=== PATIENT | female | born 1930 | race Caucasian/White ===

== ENCOUNTER 2017-12-19 05:17 | Observation (INO) | payer OTHER ==
[2017-12-19 06:37] LABS: Absolute Lymphocytes (CBC) 1.7 K/uL (0.7-4.9); Basophils % 0.9 % (0-1.3); Eosinophils % 0.3 % (0-4.4); Hematocrit 37.6 % (36.0-45.0); Lymphocytes % 14.2 % (15.3-44.8); MCH 28.8 pg (27.0-35.0); MCV 85.9 fL (80-100); MPV 8.8 fL (7.6-11.3); Monocytes % 8.4 % (3.3-12.3); RBC Red Blood Cell Count 4.38 M/uL (3.86-4.86)
[2017-12-19] MEDS ORDERED: NA CHLORIDE 0.9% 1,000 ML ONE (06:47)
[2017-12-19] MEDS ORDERED: ONDANSETRON 4 MG/2 ML VIAL ONE (06:47)
[2017-12-19 07:08] LABS: Urine Blood NEGATIVE (NEG); Urine Glucose NEGATIVE (NEG); Urine Protein TRACE (NEG)
[2017-12-19 07:09] LABS: Urine Bacteria <20 /HPF (<20); Urine Culture Reflex Order REFLEXED; Urine RBC <5 /HPF (NONE SEEN)
[2017-12-19 07:34] LABS: Albumin 3.3 g/dL (3.4-5.0); Bilirubin Direct 0.1 mg/dL (0-0.2); Bilirubin Total 0.8 mg/dL (0.2-1.0); Potassium 3.7 mmol/L (3.5-5.1); Protein, Total 7.5 g/dL (6.4-8.2)
--- NOTE | 2017-12-19 08:26 | RAD REPORT ---
EXAM DESCRIPTION: CT - Abdomen Pelvis W Contrast - 12/19/2017 8:07 am CLINICAL HISTORY: Abdominal pain COMPARISON: September 22, 2007 TECHNIQUE: Biphasic, helical CT imaging of the abdomen and pelvis was performed following 100 ml non -ionic IV contrast. No oral contrast was given. All CT scans are performed using dose optimization technique as appropriate and may include automated exposure control or mA/KV adjustment according to patient size. FINDINGS: Small bilateral pleural effusions are present right greater than left. These are new from the Sep 22 2007 study. Minimal pericardial effusion. The liver, spleen, and pancreas show no suspicious findings. Cholecystectomy clips are present. Dilat ion of the biliary tree is similar to 2008 and believed to be normal variant reservoir effect that ca n occur after a cholecystectomy. Small punctate cystic areas in the head of the pancreas may be part of the pancreatic duct system. There is fatty infiltration or volume loss of pancreatic parenchyma. F indings are not felt to be substantially different from 2008. Symmetric renal function is seen with no hydronephrosis or suspicious renal mass. No pyelonephritis o r acute renal parenchymal process. Contrast within the calices on arterial phase imaging is due to jennifer luz's limited IV access and the restart of the examination at a lower injection dose. No dilated bowel loops or bowel wall thickening. Patient has extensive left-sided diverticulosis with out diverticulitis. No gross evidence for a colon mass. Approximately 3.5 x 1.5 centimeter fatty mass in the colon at the hepatic flexure is present but not regarded as significant. Colon assessment is limited in this setting. No free air, pneumatosis or acute inflammatory stranding. Trace amount of fl uid in the dependent portion of the pelvis. No hernia, mass or bulky lymphadenopathy. The urinary bl adder is without significant finding. No adrenal abnormality. Uterus is absent. Ovaries are absent or atrophic. Old right ischium fracture is present. Patient has disc and bone degenerative change. Multilevel vert ebroplasty changes are noted. No active bone process suspected. IMPRESSION: No obstruction, free air or surgically emergent finding. Prominent left-sided diverticulosis without diverticulitis. No acute GI process seen. Nonacute findings detailed above are similar to the 2007 study.
--- NOTE | 2017-12-19 08:49 | ER ---
Nurse's Notes [facility] Name: Jenn Robbins Age: 87 yrs Sex: Female : 1930 Arrival Date: 12/19/2017 Time: 05:21 Bed 20 Private MD: Carmine Webber Diagnosis: Dehydration;Pleural effusion, not elsewhere classified;Weakness;Diarrhea, unspecified Presentation: 12/19 05:22 Presenting complaint: EMS states: Abdominal pain since the day before. Patient positive ao for nausea but denies vomiting. Patient BP was elevated and patient states that was unable to take her BP medications since yesterday. Transition of care: patient was not received from another setting of care. Onset of symptoms was December 18, 2017 at 06:00. Risk Assessment: Do you want to hurt yourself or someone else? Patient reports no desire to harm self or others. Initial Sepsis Screen: Does the patient meet any 2 criteria? No. Patient's initial sepsis screen is negative. Does the patient have a suspected source of infection? No. Patient's initial sepsis screen is negative. Care prior to arrival: None. 05:22 Method Of Arrival: EMS: [facility] ao 05:22 Acuity: MAURA 3 ao Historical: - Allergies: 05:30 Adhesives; ao 05:30 Ampicillin; ao 05:30 Nitrofurantoin; ao 05:30 Sulfa (Sulfonamide Antibiotics); ao - Home Meds: 05:30 Coreg 25 mg Oral tab 1 tab 2 times per day [Active]; Breo Ellipta inhalation [Active]; ao pantoprazole 40 mg Oral TbEC 1 tab once daily [Active]; multivitamin Oral cap daily [Active]; Tylenol PM Extra Strength 25-500 mg Oral tab once daily [Active]; hydroxyzine HCl 25 mg Oral tab [Active]; gabapentin 100 mg Oral cap twice a day [Active]; spironolactone 25 mg Oral tab 1 tab once daily [Active]; furosemide 20 mg Oral tab 1 tab once daily [Active]; - PMHx: 05:30 Arthritis; bells palsy; CHF; COPD; Diverticulitis; Hypertension; Osteoporosis; ao - PSHx: 05:30 Cholecystectomy; Appendectomy; stapedectomy; Hysterectomy; Tonsillectomy; ao - Immunization history:: Adult Immunizations up to date. - Social history:: Smoking status: Patient/guardian denies using tobacco, Patient uses alcohol, occasionally. Patient/guardian denies using street drugs, IV drugs. - Ebola Screening: : Patient negative for fever greater than or equal to 101.5 degrees Fahrenheit, and additional compatible Ebola Virus Disease symptoms Patient denies exposure to infectious person Patient denies travel to an Ebola-affected area in the 21 days before illness onset. Screenin:31 Abuse screen: Denies threats or abuse. Denies injuries from another. Nutritional ao screening: No deficits noted. Tuberculosis screening: No symptoms or risk factors identified. Fall Risk None identified. Assessment: 05:30 General: Appears in no apparent distress. comfortable, Behavior is calm, cooperative, ao appropriate for age. Pain: Complains of pain in abdomen. Neuro: Level of Consciousness is awake, alert, obeys commands, Oriented to person, place, time, situation, Appropriate for age Moves all extremities. Weakness Speech is normal, Facial symmetry appears normal, Pupils are PERRLA. Cardiovascular: Capillary refill < 3 seconds Patient's skin is warm and dry. Respiratory: Airway is patent Respiratory effort is even, unlabored, Respiratory pattern is regular, symmetrical. GI: Abdomen is non-distended, Bowel sounds present X 4 quads. Abd is soft and non tender X 4 quads. : No signs and/or symptoms were reported regarding the genitourinary system. EENT: No signs and/or symptoms were reported regarding the EENT system. Derm: Skin is intact, Skin is dry, Skin is pink, warm \T\ dry. normal, Skin temperature is warm. Musculoskeletal: Circulation, motion, and sensation intact. Range of motion:. 05:33 Reassessment: Dr Cosme at bedside. Dr Cosme was notified of patient BP's elevated and ao no order where received. 06:50 Reassessment: Patient appears in no apparent distress at this time. Patient and/or ao family updated on plan of care and expected duration. Pain level reassessed. Patient is alert, oriented x 3, equal unlabored respirations, skin warm/dry/pink. 07:17 General: Appears in no apparent distress. comfortable, Behavior is calm, cooperative. em Pain: Complains of pain in left lower quadrant and right lower quadrant. Neuro: Level of Consciousness is awake, alert, obeys commands, Oriented to person, place, time, situation, Speech is normal, Facial symmetry appears normal. Cardiovascular: Capillary refill < 3 seconds Patient's skin is warm and dry. Cardiovascular: Edema is 2+ to left ankle, left foot, right ankle and right foot. Respiratory: Airway is patent Respiratory effort is even, unlabored, Respiratory pattern is regular, symmetrical. GI: Abdomen is round non-distended, Bowel sounds present X 4 quads. Abd is soft X 4 quads Abdomen is tender to palpation in right lower quadrant and left lower quadrant. : No signs and/or symptoms were reported regarding the genitourinary system. EENT: No signs and/or symptoms were reported regarding the EENT system. Derm: Skin is intact, Skin is pink, warm \T\ dry. Musculoskeletal: Range of motion: intact in all extremities. 07:20 Reassessment: I agree with previous assessment. hb 08:15 Reassessment: Patient appears in no apparent distress at this time. Patient and/or em family updated on plan of care and expected duration. Pain level reassessed. Patient is alert, oriented x 3, equal unlabored respirations, skin warm/dry/pink. Patient denies pain at this time. Patient states symptoms have improved. 09:00 Reassessment: pt wheeled to restroom, became SOB, RR 28, SPO2 83% RA, assisted back em into bed, placed 2L via NC, SPO2 % 98% on 2L, pt appears in no apparent distress after intervention, Dr. Brown notified, will continue to monitor. Vital Signs: 05:23 BP 212 / 74; Pulse 79; Resp 14; Temp 98.1(O); Pulse Ox 94% on R/A; Weight 68.49 kg (R); ao Height 4 ft. 11 in. (149.86 cm) (R); Pain 5/10; 06:50 BP 158 / 67; Pulse 73; Resp 16; Pulse Ox 93% ; Pain 0/10; ao 07:19 BP 163 / 53; Pulse 76; Resp 18; Pulse Ox 95% on R/A; Pain 0/10; em 08:15 BP 193 / 59; Pulse 80; Resp 16; Pulse Ox 95% on R/A; Pain 0/10; em 08:55 Pulse 87; Resp 28; Pulse Ox 83% on R/A; em 08:59 BP 155 / 56; Pulse 85; Resp 22; Pulse Ox 100% on 2 lpm NC; em 10:25 BP 154 / 48; Pulse 73; Resp 20; Temp 98.6(O); Pulse Ox 100% on 2 lpm NC; Pain 0/10; em 05:23 Body Mass Index 30.50 (68.49 kg, 149.86 cm) ao 08:55 after being assisted to restroom with wheelchair em ED Course: 05:21 Patient arrived in ED. ao 05:21 Carmine Webber MD is Private Physician. ao 05:23 Triage completed. ao 05:25 Arm band placed on right wrist. Patient placed in an exam room, on a stretcher, on ao pulse oximetry, Patient notified of wait time. 05:32 Patient has correct armband on for positive identification. threat monitoring analyst on. Pulse ao ox on. NIBP on. 05:33 Jose Martin Mancuso RN is Primary Nurse. ao 05:37 Jason Cosme MD is Attending Physician. gs 06:30 Missed attempt(s): 20 gauge in left antecubital area. ao 06:45 Inserted saline lock: 22 gauge in right antecubital area, using aseptic technique. ao ,using aseptic technique. Avoided using tourniquet. ultrasound guided technique Blood collected. 07:02 Report given to CRUZ Armendariz. ao 07:15 Marcello Larkin LVN is Primary Nurse. em 07:56 CT completed. Patient tolerated procedure well. Patient moved back from CT. bq 07:57 Attending Physician role handed off by Jason Cosme MD rn 07:57 Kirk Brown MD is Attending Physician. rn 08:07 CT Abd/Pelvis - W/Contrast In Process Unspecified. EDMS 08:48 Luis Dee MD is Hospitalizing Provider. rn 10:25 No provider procedures requiring assistance completed. Patient admitted, IV remains in em place. Administered Medications: 06:48 Drug: Zofran 4 mg Route: IVP; Site: right antecubital; ao 07:15 Follow up: Response: No adverse reaction; Nausea is decreased em 06:48 Drug: NS 0.9% 1000 ml Route: IV; Rate: 125 ml/hr; Site: right antecubital; ao 08:00 Follow up: IV Status: Order to discontinue infusion; IV Intake: 200ml em Intake: 08:00 IV: 200ml; Total: 200ml. em Outcome: 08:48 Decision to Hospitalize by Provider. rn 11:09 Admitted to Med/surg accompanied by tech, family with patient, via wheelchair, room em 406, with oxygen, with chart, Report called to NED Green 11:09 Condition: good 11:09 Instructed on the need for admit, Demonstrated understanding of instructions. 11:10 Patient left the ED. em Signatures: Dispatcher [employer] EDAnali Layton Edgar, REPRODUCTION PRODUCTION MANAGER REPRODUCTION PRODUCTION MANAGER em Kirk Brown MD MD rn Ortiz, Alex, RN RN ao Baxter, Heather, RN RN hb Starr, MD ALFREDO Gomez gs Corrections: (The following items were deleted from the chart) 05:25 05:22 Presenting complaint: EMS states: Abdominal pain since the day before. Patient ao positive for nausea but denies vomiting. ao 05:36 05:33 Reassessment: Dr Cosme at bedside. Dr Cosme was addressed of Patient BP. No order ao received ao
--- NOTE | 2017-12-19 08:49 | EDPHYS ---
Physician Documentation [facility] Name: Jenn Robbins Age: 87 yrs Sex: Female : 1930 Arrival Date: 12/19/2017 Time: 05:21 Bed 20 Private MD: Carmine Webber ED Physician Kirk Brown HPI: 12/19 05:56 This 87 yrs old Female presents to ER via EMS with complaints of Abdominal gs Pain. 05:56 The patient presents with abdominal pain in the lower abdomen. Onset: The gs symptoms/episode began/occurred acutely, 2 day(s) ago. The symptoms do not radiate. Associated signs and symptoms: Pertinent positives: nausea, Pertinent negatives: fever, vomiting. The symptoms are described as sharp. Modifying factors: The symptoms are alleviated by nothing, the symptoms are aggravated by nothing. Severity of pain: At its worst the pain was moderate in the emergency department the pain is unchanged. The patient has experienced similar episodes in the past, a few times. The patient has not recently seen a physician. Historical: - Allergies: 05:30 Adhesives; ao 05:30 Ampicillin; ao 05:30 Nitrofurantoin; ao 05:30 Sulfa (Sulfonamide Antibiotics); ao - Home Meds: 05:30 Coreg 25 mg Oral tab 1 tab 2 times per day [Active]; Breo Ellipta inhalation [Active]; ao pantoprazole 40 mg Oral TbEC 1 tab once daily [Active]; multivitamin Oral cap daily [Active]; Tylenol PM Extra Strength 25-500 mg Oral tab once daily [Active]; hydroxyzine HCl 25 mg Oral tab [Active]; gabapentin 100 mg Oral cap twice a day [Active]; spironolactone 25 mg Oral tab 1 tab once daily [Active]; furosemide 20 mg Oral tab 1 tab once daily [Active]; - PMHx: 05:30 Arthritis; bells palsy; CHF; COPD; Diverticulitis; Hypertension; Osteoporosis; ao - PSHx: 05:30 Cholecystectomy; Appendectomy; stapedectomy; Hysterectomy; Tonsillectomy; ao - Immunization history:: Adult Immunizations up to date. - Social history:: Smoking status: Patient/guardian denies using tobacco, Patient uses alcohol, occasionally. Patient/guardian denies using street drugs, IV drugs. - Ebola Screening: : Patient negative for fever greater than or equal to 101.5 degrees Fahrenheit, and additional compatible Ebola Virus Disease symptoms Patient denies exposure to infectious person Patient denies travel to an Ebola-affected area in the 21 days before illness onset. ROS: 05:56 Cardiovascular: Negative for chest pain. gs 05:56 Respiratory: Negative for shortness of breath. 05:56 All other systems are negative. Exam: 05:56 Head/Face: Normocephalic, atraumatic. Eyes: Pupils equal round and reactive to light, gs extra-ocular motions intact. Lids and lashes normal. Conjunctiva and sclera are non-icteric and not injected. Cornea within normal limits. Periorbital areas with no swelling, redness, or edema. ENT: Nares patent. No nasal discharge, no septal abnormalities noted. Tympanic membranes are normal and external auditory canals are clear. Oropharynx with no redness, swelling, or masses, exudates, or evidence of obstruction, uvula midline. Mucous membranes moist. Neck: Trachea midline, no thyromegaly or masses palpated, and no cervical lymphadenopathy. Supple, full range of motion without nuchal rigidity, or vertebral point tenderness. No Meningismus. Chest/axilla: Normal chest wall appearance and motion. Nontender with no deformity. No lesions are appreciated. Cardiovascular: Regular rate and rhythm with a normal S1 and S2. No gallops, murmurs, or rubs. Normal PMI, no JVD. No pulse deficits. Respiratory: Lungs have equal breath sounds bilaterally, clear to auscultation and percussion. No rales, rhonchi or wheezes noted. No increased work of breathing, no retractions or nasal flaring. Back: No spinal tenderness. No costovertebral tenderness. Full range of motion. Skin: Warm, dry with normal turgor. Normal color with no rashes, no lesions, and no evidence of cellulitis. MS/ Extremity: Pulses equal, no cyanosis. Neurovascular intact. Full, normal range of motion. Neuro: Awake and alert, GCS 15, oriented to person, place, time, and situation. Cranial nerves II-XII grossly intact. Motor strength 5/5 in all extremities. Sensory grossly intact. Cerebellar exam normal. Normal gait. 05:56 Constitutional: The patient appears alert, awake. 05:56 Constitutional: The patient appears uncomfortable. 05:56 Abdomen/GI: Palpation: moderate abdominal tenderness, in the right lower quadrant and left lower quadrant, rebound tenderness, is not appreciated. 06:01 ECG was reviewed by the Attending Physician. gs Vital Signs: 05:23 BP 212 / 74; Pulse 79; Resp 14; Temp 98.1(O); Pulse Ox 94% on R/A; Weight 68.49 kg (R); ao Height 4 ft. 11 in. (149.86 cm) (R); Pain 5/10; 06:50 BP 158 / 67; Pulse 73; Resp 16; Pulse Ox 93% ; Pain 0/10; ao 07:19 BP 163 / 53; Pulse 76; Resp 18; Pulse Ox 95% on R/A; Pain 0/10; em 08:15 BP 193 / 59; Pulse 80; Resp 16; Pulse Ox 95% on R/A; Pain 0/10; em 08:55 Pulse 87; Resp 28; Pulse Ox 83% on R/A; em 08:59 BP 155 / 56; Pulse 85; Resp 22; Pulse Ox 100% on 2 lpm NC; em 10:25 BP 154 / 48; Pulse 73; Resp 20; Temp 98.6(O); Pulse Ox 100% on 2 lpm NC; Pain 0/10; em 05:23 Body Mass Index 30.50 (68.49 kg, 149.86 cm) ao 08:55 after being assisted to restroom with wheelchair em MDM: 05:37 Patient medically screened. gs 05:56 Differential diagnosis: appendicitis, bowel obstruction, diverticulitis, non-specific gs abd pain, pancreatitis. Data reviewed: vital signs, nurses notes. 06:01 Response to treatment: the patient's symptoms have markedly improved after treatment. gs 08:46 Counseling: I had a detailed discussion with the patient and/or guardian regarding: the rn historical points, exam findings, and any diagnostic results supporting the discharge/admit diagnosis, lab results, radiology results, the need for further work-up and treatment in the hospital. Admission orders: after a detailed discussion of the patient's condition and case, the admit orders are written by me. ED course: Pt with normal ct abdomen without acute findings, will admit for observation given weakness, persistent diarrhea, age, and difficulty managing fluid balance/medication at home. . 12/19 05:38 Order name: Basic Metabolic Panel; Complete Time: 07:46 gs 12/19 05:38 Order name: CBC with Diff; Complete Time: 07:07 gs 12/19 05:38 Order name: Hepatic Function; Complete Time: 07:46 gs 12/19 05:38 Order name: Lipase; Complete Time: 07:46 gs 12/19 05:38 Order name: Urine Microscopic Only; Complete Time: 07:46 gs 12/19 06:39 Order name: Urine Dipstick--Ancillary (enter results); Complete Time: 07:46 eb 12/19 05:38 Order name: EKG; Complete Time: 05:39 gs 12/19 05:38 Order name: CT Abd/Pelvis - W/Contrast; Complete Time: 08:30 gs 12/19 07:11 Order name: Urine Culture EDID 12/19 07:46 Order name: BNP; Complete Time: 08:30 rn 12/19 07:48 Order name: LAB Add On eb 12/19 09:39 Order name: Diet 2 Gm Sodium; Complete Time: 09:39 em 12/19 05:38 Order name: EKG - Nurse/Tech; Complete Time: 06:48 gs 12/19 05:38 Order name: IV Saline Lock; Complete Time: 06:48 gs 12/19 05:38 Order name: Labs collected and sent; Complete Time: 06:48 gs 12/19 05:38 Order name: Urine Dipstick-Ancillary (obtain specimen); Complete Time: 06:48 gs EC:01 Rate is 76 beats/min. Rhythm is regular with Right bundle branch block. ME interval is gs normal. QRS interval is prolonged. QT interval is normal. T waves are Normal. No ST changes noted. Clinical impression: Abnormal EKG without significant change. Interpreted by me. Administered Medications: 06:48 Drug: Zofran 4 mg Route: IVP; Site: right antecubital; ao 07:15 Follow up: Response: No adverse reaction; Nausea is decreased em 06:48 Drug: NS 0.9% 1000 ml Route: IV; Rate: 125 ml/hr; Site: right antecubital; ao 08:00 Follow up: IV Status: Order to discontinue infusion; IV Intake: 200ml em Disposition: 12/19/17 08:48 Hospitalization ordered by Luis Dee for Observation. Preliminary diagnosis are Dehydration, Pleural effusion, not elsewhere classified, Weakness, Diarrhea, unspecified. - Bed requested for Telemetry/MedSurg (observation). - Status is Observation. em - Condition is Stable. - Problem is an ongoing problem. - Symptoms have improved. UTI on Admission? No Signatures: Dispatcher [employer] EDMS Larkin, Marcello, VOLUNTEER MANAGER VOLUNTEER MANAGER Kirk Herbert MD MD rn Ortiz, Alex, RN RN ao Starr, Gregory, MD MD gs Botello, Elizabeth eb Corrections: (The following items were deleted from the chart) 09:03 08:48 Hospitalization Ordered by Luis Dee MD for Observation. Preliminary diagnosis eb is Dehydration; Pleural effusion, not elsewhere classified; Weakness; Diarrhea, unspecified. Bed requested for Telemetry/MedSurg (observation). Status is Observation. Condition is Stable. Problem is an ongoing problem. Symptoms have improved. UTI on Admission? No. rn 10:03 09:03 12/19/2017 08:48 Hospitalization Ordered by Luis Dee MD for Observation. eb Preliminary diagnosis is Dehydration; Pleural effusion, not elsewhere classified; Weakness; Diarrhea, unspecified. Bed requested for Telemetry/MedSurg (observation). Status is Observation. Condition is Stable. Problem is an ongoing problem. Symptoms have improved. UTI on Admission? No. eb 11:10 10:03 12/19/2017 08:48 Hospitalization Ordered by Luis Dee MD for Observation. em Preliminary diagnosis is Dehydration; Pleural effusion, not elsewhere classified; Weakness; Diarrhea, unspecified. Bed requested for Telemetry/MedSurg (observation). Status is Observation. Condition is Stable. Problem is an ongoing problem. Symptoms have improved. UTI on Admission? No. eb
[2017-12-19] MEDS ORDERED: ACETAMINOPHEN 500 MG TAB PO PRN (09:32)
[2017-12-19] MEDS ORDERED: ONDANSETRON 4 MG/2 ML VIAL IV PRN (09:32)
[2017-12-19] MEDS ORDERED: LORATADINE 10 MG TAB PO PRN (12:49)
[2017-12-19] MEDS ORDERED: LABETALOL 20 MG/4ML SYRINGE IV PRN (13:06)
[2017-12-19] MEDS: NA CHLORIDE 0.9% 1,000 ML IV SCH ×3 (13:07→21:00)
[2017-12-19] MEDS: FUROSEMIDE 40 MG TABLET PO SCH (13:07)
[2017-12-19] MEDS: CARVEDILOL 25 MG TAB PO SCH ×2 (13:08→18:01)
[2017-12-19 13:53] VITALS: BMI 30.4
--- NOTE | 2017-12-19 14:16 | HP ---
Date of Admission: 12/19/2017 Chief Complaint: Generalized weakness, diarrhea. Code Status: Full. The patient does have medical power of immigration attorney and living will. History Of Present Illness: The patient is an 87-year-old female with past medical history of arthritis, hypertension, heart failure, COPD, osteoporosis, comes in with 4-day history of sudden onset of abdominal discomfort, cramping along with multiple episodes of nonbloody diarrhea, some nausea, but no vomiting along with some subjective fever and chills. The patient is a resident of assisted living facility at [facility] and states that there may be some other residents who may be ill with similar symptoms, she is unsure if. The patient's symptoms are constant, moderate, progressively worsening. She reported generalized weakness, dizziness, and therefore came into the ER for further evaluation. Her workup revealed white count of 11.8 with some left shift. Her electrolytes were normal. Her UA was negative. She was given IV fluids, antiemetics, and then referred for admission for further evaluation. When seen in the ER, she was awake, alert, oriented x3, in some mild distress. Past Medical History: Hypertension, osteoarthritis, Leal palsy, right bundle- branch blockage, diastolic congestive heart failure, COPD, osteoporosis, the patient on supplemental oxygen for her COPD, fractures of T12 in June 2004, metatarsal fracture also in June 2004, broken pelvis in March 2005, fractured left wrist in May 2005, diverticulitis, tonsillectomy in 1939, appendectomy in 1948, right ear stapedectomy in 1965, had surgery on the right ear in 1969 with some copper wire from the anvil to stirrup, hysterectomy in 1974, cholecystectomy in 1989, modified radical mastectomy on right breast in June 2001. Allergies: AMPICILLIN, SULFA, ADHESIVE TAPE, NITROFURANTOIN, LEVAQUIN. Medications: List reviewed. Social History: The patient is a former smoker, quit in 1979, smoked heavily before that. Drinks an occasional glass of wine with dinner. Lives in assisted living facility. Does use assistive ambulatory devices. Family History: Father had stroke and Parkinson. Mother had hypertension and dementia. Brother had heart disease, hypertension, diabetes, and dementia. Review of Systems: An 11-point system reviewed, negative except as per HPI. Physical Examination: Vital Signs: Blood pressure 212/74, respirations 14, heart rate 79, temperature 98.1, O2 94% on room air. General: Awake, alert, oriented x3, elderly female, ill appearing, in some mild distress. HEENT: Normocephalic, atraumatic. PERRLA. EOMI. Dry mucous membranes. Poor dentition. Oropharynx is clear. Conjunctiva anicteric. Neck: Supple. No JVD. Trachea midline. CV: S1, S2. No murmurs. Regular rate and rhythm. Pulses are weak. Respiratory: Moving air well bilaterally. No wheezing. No stridor. No use of accessory muscles. Gastrointestinal: Abdomen is soft. Mild tenderness to palpation in the epigastric region. No guarding or rigidity. No palpable masses. Bowel sounds positive. Extremities: No clubbing, cyanosis, or edema. No calf tenderness. Neuro: Cranial nerves 2 through 12 intact grossly. No focal neurological deficits. Speech is normal. Strength is 5/5 bilateral upper and lower extremities. Skin: No rashes. Normal skin turgor. Psych: Mood is okay. Affect is full. Insight and judgment are good. Laboratory Data: UA; negative nitrite, negative leukocyte, less than 5 RBC, 5- 10 WBC, 5-10 squamous epithelial cells, less than 20 bacteria. Sodium 140, potassium 3.7, chloride 100, CO2 29, BUN 15, creatinine 1.2, glucose 126, calcium 9.3. BNP 1699, albumin 3.3. WBC 11.8, H and H 12.6 and 37.6, platelets 351, neutrophils 76%. CT scan abdomen and pelvis shows no obstruction , free air, or surgically emergent finding. Prominent left-sided diverticulosis without diverticulitis. No acute GI process seen. Nonacute findings similar to 2008 study. Assessment And Plan: An 87-year-old female with: 1. Generalized weakness. 2. Abdominal pain. 3. Diarrhea. 4. Uncontrolled hypertension. 5. Generalized osteoarthritis. 6. History of Leal palsy. 7. Right bundle-branch block. 8. Diastolic congestive heart failure, chronic. 9. Chronic obstructive pulmonary disease, chronic bronchitis. 10. Osteoporosis. Plan: Admit the patient to Med-Surg, place as observation. We will continue with IV fluid resuscitation and antiemetics. We will obtain stool studies to rule out C. diff colitis. Obtain stool cultures, and fecal leukocyte. Follow up with urine culture, likely contaminant. Nitrites and leukocyte esterase are negative, only 5-10 wbc's. We will resume home medications once reconciled. AIXA Voice ID: [id number] [id number]
[2017-12-19] MEDS: PANTOPRAZOLE 40MG TABLET PO SCH (14:27)
[2017-12-19] MEDS: GABAPENTIN 100 MG CAP PO SCH ×2 (14:27→20:27)
--- NOTE | 2017-12-19 15:16 | EKG ---
Test Date: 2017-12-19 Test Time: 05:44:31 Utility Forester: BREE MEASUREMENT RESULTS: Intervals: Rate: 76 OR: 158 QRSD: 116 QT: 404 QTc: 454 [place]: P: 75 OR: 158 QRS: 73 T: 72 INTERPRETIVE STATEMENTS: Normal sinus rhythm Right bundle branch block Abnormal ECG Compared to ECG 05/02/2017 10:34:04 No significant changes Electronically Signed On 12-19-17 15:16:05 CDT by Eduardo Ruelas
[2017-12-19] MEDS ORDERED: POTASSIUM 25 MEQ EFFERV TAB PO ONE (16:00)
[2017-12-19] MEDS ORDERED: CARVEDILOL 25 MG TAB PO SCH (18:00)
[2017-12-19 19:38] VITALS: O2SAT 94
[2017-12-19] MEDS ORDERED: ACETAMINOPHEN 500 MG TAB PO SCH (21:00)
[2017-12-19] MEDS ORDERED: DIPHENHYDRAMINE 25 MG TAB/CAP PO SCH (21:00)
[2017-12-19] MEDS ORDERED: DIPHENHYDRAMINE PO SCH (21:00)
[2017-12-19] MEDS ORDERED: ACETAMINOPHEN PO SCH (21:00)
[2017-12-19] MEDS ORDERED: GABAPENTIN 100 MG CAP PO SCH (21:00)
[2017-12-20 05:56] VITALS: BP 125/58
[2017-12-20] MEDS: CARVEDILOL 25 MG TAB PO SCH (05:56)
[2017-12-20] MEDS: NA CHLORIDE 0.9% 1,000 ML IV SCH (06:01)
[2017-12-20 06:11] LABS: Absolute Lymphocytes (CBC) 1.5 K/uL (0.7-4.9); Absolute Monocytes 1.2 K/uL (0.1-1.3); Absolute Neutrophil 5.4 K/uL (1.8-8.0); Basophils % 1.2 % (0-1.3); Eosinophils % 1.6 % (0-4.4); Hematocrit 33.6 % (36.0-45.0); Lymphocytes % 17.7 % (15.3-44.8); MCH 29.4 pg (27.0-35.0); MCV 86.7 fL (80-100); MPV 9.1 fL (7.6-11.3); Monocytes % 14.7 % (3.3-12.3); RBC Red Blood Cell Count 3.87 M/uL (3.86-4.86)
[2017-12-20 06:26] LABS: Albumin 2.9 g/dL (3.4-5.0); Bilirubin Total 0.6 mg/dL (0.2-1.0); Potassium 3.2 mmol/L (3.5-5.1); Protein, Total 6.2 g/dL (6.4-8.2)
[2017-12-20] MEDS ORDERED: POTASSIUM 25 MEQ EFFERV TAB PO ONE (06:42)
[2017-12-20] MEDS ORDERED: FUROSEMIDE 40 MG TABLET PO SCH (09:00)
[2017-12-20] MEDS ORDERED: HOME MED 1 EA UNK (Fluticasone/Vilanterol [Breo Ellipta 200-25 Mcg Inh] 1 PUFF) PO SCH (09:00)
[2017-12-20] MEDS ORDERED: ENOXAPARIN 30 MG/0.3 ML SQ SCH (09:00)
[2017-12-20] MEDS: FUROSEMIDE 40 MG TABLET PO SCH (09:11)
[2017-12-20] MEDS: GABAPENTIN 100 MG CAP PO SCH (09:11)
[2017-12-20] MEDS: PANTOPRAZOLE 40MG TABLET PO SCH (09:11)
[2017-12-20 13:59] VITALS: TEMP 97.6
--- NOTE | 2017-12-21 10:25 | DS ---
Date of Discharge: 12/20/2017 Discharge Diagnoses: 1. Acute dehydration. 2. Generalized weakness. 3. Abdominal pain. 4. Diarrhea. 5. Hypertensive urgency. 6. Generalized osteoarthritis. 7. History of Leal palsy. 8. Right bundle-branch block. 9. Diastolic congestive heart failure, chronic. 10. Chronic obstructive pulmonary disease, chronic bronchitis. 11. Osteoporosis. Hospital Course: The patient is an 87-year-old female comes in with history of generalized arthritis, hypertension, heart failure, COPD, osteoporosis. The patient of Dr. Webber, Hospice Service is covering for with sudden onset of abdominal discomfort and loose stools. The patient is a resident of assisted living facility. The patient had generalized weakness. She was admitted to the hospital for further evaluation. Her workup revealed elevated WBC count. Her urine was equivocal. She did develop some hypokalemia, which was replaced. She was hydrated with IV fluids. She did have some uncontrolled blood pressure, which was treated with IV medications. The patient otherwise did well. Her diarrhea essentially resolved. Abdominal pain also resolved. She did not have any further loose stools or any stools at all, therefore, no stool studies were able to be collected. The patient's urine culture showed mixed brittni likely contaminant. CT scan of the abdomen and pelvis did not show any acute changes. She does have moderate diverticulosis, but no diverticulitis. There is no obstruction or free air. The patient was then discharged home in a stable condition. Activity: As tolerated. Fall precautions. Medications: As per medication reconciliation list. Diet: Heart-healthy. Followup: Follow up with primary care physician in 2 to 3 days. Return to ER for worsening condition. Physical Examination: General: Awake, alert, oriented, no acute distress. CV: S1, S2. No murmurs. Respiratory: Moving air well bilaterally. Gastrointestinal: Abdomen is soft, nontender, nondistended. Positive bowel sounds. Extremities: No clubbing, cyanosis, edema. Neurologic: Nonfocal. SA/MODL Voice ID: [id number] Report ID: [id number] LITA
== END 2017-12-20 09:41 | disposition home or self-care (01) ==
LOC: ER 05:17 → ERHOLD 08:57 → 4TH 10:54
PROVIDERS: ADMIT Family Medicine; ATTEND Family Medicine
DX: E86.0 Dehydration (principal); R53.1 Weakness; R10.9 Unspecified abdominal pain; R19.7 Diarrhea, unspecified; I16.0 Hypertensive urgency; M15.9 Polyosteoarthritis, unspecified; I45.10 Unspecified right bundle-branch block; I11.0 Hypertensive heart disease with heart failure; I50.32 Chronic diastolic (congestive) heart failure; J44.9 Chronic obstructive pulmonary disease, unspecified; M81.0 Age-related osteoporosis without current pathological fracture; E87.6 Hypokalemia; K57.30 Diverticulosis of large intestine without perforation or abscess without bleeding; Z88.1 Allergy status to other antibiotic agents; Z88.3 Allergy status to other anti-infective agents; Z88.2 Allergy status to sulfonamides; Z91.048 Other nonmedicinal substance allergy status; Z87.891 Personal history of nicotine dependence
CPT/HCPCS: 36415 ×2; 74177; 80048; 80053; 80076; 83690; 83880; 85025 ×2; 87086; 87088; 93005; 94760 ×2; 96361; 96374; 99285; G0378 ×2; J2405; J7030 ×3; Q9967; 81003; 81015

== ENCOUNTER 2018-02-05 16:44 | Inpatient (IN) | payer OTHER ==
[2018-02-05 17:55] LABS: Absolute Lymphocytes (CBC) 1.9 K/uL (0.7-4.9); Absolute Monocytes 1.2 K/uL (0.1-1.3); Absolute Neutrophil 7.3 K/uL (1.8-8.0); Basophils % 1.2 % (0-1.3); Eosinophils % 1.6 % (0-4.4); Hematocrit 36.5 % (36.0-45.0); Lymphocytes % 18.3 % (15.3-44.8); MCH 28.4 pg (27.0-35.0); MCV 84.6 fL (80-100); MPV 8.7 fL (7.6-11.3); Monocytes % 10.9 % (3.3-12.3); RBC Red Blood Cell Count 4.31 M/uL (3.86-4.86)
[2018-02-05 18:08] LABS: Protime INR 1.02
[2018-02-05 18:13] LABS: ALT/SGPT 15 U/L (12-78); AST/SGOT 16 U/L (15-37); Albumin 3.4 g/dL (3.4-5.0); Alkaline Phosphatase 63 U/L (45-117); BUN Blood Urea Nitrogen 15 mg/dL (7-18); Bicarbonate 31 mmol/L (21-32); Bilirubin Direct 0.1 mg/dL (0-0.2); Bilirubin Total 0.5 mg/dL (0.2-1.0); Glucose Level 120 mg/dL (74-106); Magnesium 2.1 mg/dL (1.8-2.4); NT PRO-BNP 1230 pg/mL (<450); Potassium 3.4 mmol/L (3.5-5.1); Protein, Total 7.4 g/dL (6.4-8.2); Sodium Level 139 mmol/L (136-145); Troponin (Emerg Dept Use Only) < 0.02 ng/mL (0.0-0.045)
[2018-02-05] MEDS ORDERED: IPRATROPIUM BROM 0.5MG/2.5ML ONE (18:21)
[2018-02-05] MEDS ORDERED: ALBUTEROL 2.5 MG/3 ML NEB SOL ONE (18:21)
[2018-02-05 18:39] LABS: Urine Bacteria NONE SEEN /HPF (<20); Urine Culture Reflex Order NOT NEEDED; Urine RBC NONE SEEN /HPF (NONE SEEN)
--- NOTE | 2018-02-05 18:55 | RAD REPORT ---
EXAM DESCRIPTION: RAD - Chest Single View - 02/05/2018 6:16 pm CLINICAL HISTORY: Cough, shortness of breath, low-grade fever COMPARISON: April 2017 TECHNIQUE: AP portable chest image was obtained 1802 hours . FINDINGS: Patient has a baseline of fibrotic lung change. There is focal opacification in the medial right base partially obscuring the right heart border. No other focal lung parenchymal process seen. No vascular engorgement. Heart size is mildly enlarged. No measurable pleural effusion and no pneumo thorax. No gross bony abnormality seen. No acute aortic findings suspected. IMPRESSION: Suspected small right middle lobe pneumonia.
[2018-02-05] MEDS ORDERED: ASPIRIN 81 MG CHEWABLE TABLET ONE (19:05)
[2018-02-05] MEDS ORDERED: Levofloxacin500mg IV 500 MG/100 ML BAG IV ONE (19:19)
[2018-02-05] MEDS ORDERED: AZITHROMYCIN 500 MG/250 ML BAG ONE (19:34)
[2018-02-05] MEDS ORDERED: CEFTRIAXONE/SWI 1gm 1 GM/10 ML SYR ONE (19:34)
[2018-02-05 19:36] LABS: Urine Blood NEGATIVE (NEG); Urine Glucose NEGATIVE (NEG); Urine Protein NEGATIVE (NEG)
--- NOTE | 2018-02-05 19:50 | EDPHYS ---
Physician Documentation [facility] Name: Jenn Robbins Age: 87 yrs Sex: Female : 1930 Arrival Date: 02/05/2018 Time: 16:49 Bed 28 Private MD: Carmine Webber ED Physician Jason Cosme HPI: 02/05 17:20 This 87 yrs old Female presents to ER via Ambulatory with complaints of cp Cough, Fever. 17:20 The patient or guardian reports cough, that is intermittent, with no sputum, shortness cp of breath, fever. 17:20 Onset: The symptoms/episode began/occurred yesterday. Severity of symptoms: in the cp emergency department the symptoms are unchanged, despite home interventions. Associated signs and symptoms: Pertinent negatives: chest pain, sore throat, vomiting. Historical: - Allergies: 16:58 Adhesives; aj 16:58 Ampicillin; aj 16:58 Nitrofurantoin; aj 16:58 Sulfa (Sulfonamide Antibiotics); aj - Home Meds: 16:58 Breo Ellipta inhalation [Active]; Coreg 25 mg Oral tab 1 tab 2 times per day [Active]; aj furosemide 20 mg Oral tab 1 tab once daily [Active]; gabapentin 100 mg Oral cap twice a day [Active]; hydroxyzine HCl 25 mg Oral tab [Active]; multivitamin Oral cap daily [Active]; pantoprazole 40 mg Oral TbEC 1 tab once daily [Active]; spironolactone 25 mg Oral tab 1 tab once daily [Active]; Tylenol PM Extra Strength 25-500 mg Oral tab once daily [Active]; - PMHx: 16:58 Arthritis; bells palsy; CHF; COPD; Diverticulitis; Hypertension; Osteoporosis; aj - PSHx: 16:58 Cholecystectomy; Appendectomy; stapedectomy; Hysterectomy; Tonsillectomy; Mastectomy aj Right; - Immunization history:: Adult Immunizations up to date. - Social history:: Smoking status: Patient/guardian denies using tobacco. - Ebola Screening: : Patient negative for fever greater than or equal to 101.5 degrees Fahrenheit, and additional compatible Ebola Virus Disease symptoms Patient denies exposure to infectious person Patient denies travel to an Ebola-affected area in the 21 days before illness onset No symptoms or risks identified at this time. ROS: 17:30 Constitutional: Negative for body aches, chills, fever, poor PO intake. cp 17:30 Eyes: Negative for injury, pain, redness, and discharge. cp 17:30 ENT: Negative for drainage from ear(s), ear pain, sore throat, difficulty swallowing, difficulty handling secretions. 17:30 Cardiovascular: Negative for chest pain, edema, palpitations. 17:30 Respiratory: Positive for cough, shortness of breath, Negative for hemoptysis, orthopnea, pleurisy, wheezing. 17:30 Abdomen/GI: Negative for abdominal pain, nausea, vomiting, and diarrhea, constipation, anorexia, black/tarry stool, rectal bleeding. 17:30 Back: Negative for pain at rest, pain with movement, radiated pain. 17:30 : Negative for urinary symptoms. 17:30 Skin: Negative for cellulitis, rash. 17:30 Neuro: Negative for altered mental status, dizziness, headache, syncope, near syncope, weakness. 17:30 All other systems are negative. Exam: 17:35 Constitutional: The patient appears in no acute distress, alert, awake, cp non-diaphoretic, non-toxic, well developed, well nourished. 17:35 Head/Face: Normocephalic, atraumatic. Eyes: Pupils equal round and reactive to light, cp extra-ocular motions intact. Lids and lashes normal. Conjunctiva and sclera are non-icteric and not injected. Cornea within normal limits. Periorbital areas with no swelling, redness, or edema. ENT: Nares patent. No nasal discharge, no septal abnormalities noted. Tympanic membranes are normal and external auditory canals are clear. Oropharynx with no redness, swelling, or masses, exudates, or evidence of obstruction, uvula midline. Mucous membranes moist. 17:35 Neck: ROM/movement: is normal, is supple, without pain, no range of motions limitations, no meningismus, no nuchal rigidity. 17:35 Chest/axilla: Inspection: normal, Palpation: is normal, no crepitus, no tenderness. 17:35 Cardiovascular: Rate: normal, Rhythm: regular, Edema: is not appreciated, JVD: is not appreciated. 17:35 Respiratory: the patient does not display signs of respiratory distress, Respirations: labored breathing, that is mild, shallow respirations, are not present, splinting, is not noted, tachypnea, is not appreciated, Breath sounds: rhonchi, that are mild, are located in both bases, wheezing: is not appreciated. 17:35 Abdomen/GI: Inspection: abdomen appears normal, Palpation: abdomen is soft and non-tender, in all quadrants. 17:35 Back: pain, is absent, ROM is normal. 17:35 Musculoskeletal/extremity: Exam is negative for calf tenderness, decreased range of motion, edema. 17:35 Skin: cellulitis, is not appreciated, no rash present. 17:35 Neuro: Orientation: to person, place \T\ time. Mentation: lucid, able to follow commands, Cerebellar function: is grossly normal, Motor: moves all fours, strength is normal, Sensation: no obvious gross deficits, Gait: is steady. 17:38 ECG was reviewed by the Attending Physician. Vital Signs: 16:58 BP 183 / 83; Pulse 85; Resp 17; Temp 98.3; Pulse Ox 96% on R/A; Weight 67.13 kg; Height aj 4 ft. 10 in. (147.32 cm); 17:43 BP 163 / 57; Pulse 79; Resp 17; Temp 98.3(O); Pulse Ox 97% on R/A; mh5 18:56 BP 179 / 72; Pulse 87; Resp 18; Pulse Ox 98% on R/A; mh5 19:48 BP 166 / 67; Pulse 75; Resp 20; Temp 98.4(O); Pulse Ox 98% on R/A; mh5 20:31 BP 160 / 73; Pulse 77; Resp 18; Temp 98.5; Pulse Ox 98% on R/A; Pain 0/10; mg2 16:58 Body Mass Index 30.93 (67.13 kg, 147.32 cm) aj MDM: 17:07 Patient medically screened. 19:05 Data reviewed: vital signs, nurses notes, lab test result(s), EKG, radiologic studies, cp plain films, and as a result, I will admit patient. 19:05 Counseling: I had a detailed discussion with the patient and/or guardian regarding: the cp historical points, exam findings, and any diagnostic results supporting the discharge/admit diagnosis, lab results, radiology results. Response to treatment: the patient's symptoms have mildly improved after treatment. 19:35 Physician consultation: Dalton Cotter MD was called at 19:30, regarding admission, to the telemetry unit. patient's condition. 02/05 17:18 Order name: Influenza Screen (a \T\ B); Complete Time: 18:29 02/05 17:18 Order name: CBC with Diff; Complete Time: 18:29 02/05 17:18 Order name: BMP; Complete Time: 18:29 02/05 18:29 Interpretation: Normal except: K 3.4; GLUC 120; GFR 39. 02/05 17:18 Order name: LFT's; Complete Time: 18:29 02/05 18:35 Interpretation: Normal except: GLOB 4.0; A/G 0.9. 02/05 17:18 Order name: Magnesium; Complete Time: 18:29 02/05 17:18 Order name: NT PRO-BNP; Complete Time: 18:29 02/05 18:30 Interpretation: Abnormal: NT PRO-BNP 1230. 02/05 17:18 Order name: XRAY Chest (1 view); Complete Time: 18:59 02/05 17:18 Order name: PT-INR; Complete Time: 18:29 02/05 17:18 Order name: Troponin (emerg Dept Use Only); Complete Time: 18:29 02/05 17:18 Order name: Procalcitonin; Complete Time: 18:59 02/05 17:20 Order name: Urine Microscopic Only; Complete Time: 18:59 02/05 17:23 Order name: Urine Dipstick--Ancillary (enter results) 02/05 17:18 Order name: EKG; Complete Time: 17:38 02/05 17:18 Order name: Cardiac monitoring; Complete Time: 17:45 02/05 17:18 Order name: EKG - Nurse/Tech; Complete Time: 17:45 02/05 17:18 Order name: IV Saline Lock; Complete Time: 17:45 02/05 17:18 Order name: Labs collected and sent; Complete Time: 17:45 02/05 17:18 Order name: O2 Per Protocol; Complete Time: 17:46 02/05 17:18 Order name: O2 Sat Monitoring; Complete Time: 17:46 09/29 17:18 Order name: Urine Dipstick-Ancillary (obtain specimen); Complete Time: 17:18 cp EC:38 Rate is 79 beats/min. Rhythm is regular. IL interval is normal. QRS interval is cp prolonged at 128 msec. QT interval is normal. Interpreted by me. Reviewed by me. Administered Medications: Discontinued: LevaQUIN 500 mg 100 ml IVPB once over 60 mins 18:16 Drug: DuoNeb (3:1) (2.5 mg - 0.5 mg) 3 ml Route: Nebulizer; mg2 19:20 Follow up: Response: No adverse reaction; Marked relief of symptoms mg2 19:19 Drug: LevaQUIN 500 mg Volume: 100 ml; Route: IVPB; Infused Over: 60 mins; Site: [facility] [place], [place] antecubital; 19:34 Drug: Rocephin - (cefTRIAXone) 1 grams Route: IVPB; Infused Over: 30 mins; Site: [facility] [place] [place] antecubital; 20:44 Follow up: Response: No adverse reaction; IV Status: Completed infusion mg2 19:34 Drug: Zithromax 500 mg Route: IVPB; Infused Over: 1 hrs; Site: left antecubital; mg2 20:44 Follow up: Response: No adverse reaction; IV Status: Completed infusion mg2 Disposition: 02/06 18:22 Co-signature as Attending Physician, Jason Cosme MD. Disposition: 02/05/18 19:49 Hospitalization ordered by Dalton Cotter for Inpatient Admission. Preliminary diagnosis is Pneumonia due to other specified bacteria. - Bed requested for Telemetry/MedSurg (Inpatient). - Status is Inpatient Admission. mg2 - Condition is Stable. - Problem is new. - Symptoms have improved. UTI on Admission? No Signatures: Dispatcher [employer] EDAZ Shannen Fair RN RN Sofia Caballero RN RN aj Page, Corey, PA PA cp Starr, Gregory, MD MD oJrge A Mckenna RN RN mg2 Corrections: (The following items were deleted from the chart) 02/05 20:19 19:49 Hospitalization Ordered by Dalton Cotter MD for Inpatient Admission. Preliminary diagnosis is Pneumonia due to other specified bacteria. Bed requested for Telemetry/MedSurg (Inpatient). Status is Inpatient Admission. Condition is Stable. Problem is new. Symptoms have improved. UTI on Admission? No. cp 21:01 20:19 02/05/2018 19:49 Hospitalization Ordered by Dalton Cotter MD for Inpatient mg2 Admission. Preliminary diagnosis is Pneumonia due to other specified bacteria. Bed requested for Telemetry/MedSurg (Inpatient). Status is Inpatient Admission. Condition is Stable. Problem is new. Symptoms have improved. UTI on Admission? No. mw
--- NOTE | 2018-02-05 19:50 | ER ---
Nurse's Notes [facility] Name: Jenn Robbins Age: 87 yrs Sex: Female : 1930 Arrival Date: 02/05/2018 Time: 16:49 Bed 28 Private MD: Carmine Webber Diagnosis: Pneumonia due to other specified bacteria Presentation: 02/05 16:57 Presenting complaint: Patient states: Cough, SOB, and low grade fever since yesterday. aj Transition of care: patient was not received from another setting of care. Onset of symptoms was February 05, 2018. Risk Assessment: Do you want to hurt yourself or someone else? Patient reports no desire to harm self or others. Initial Sepsis Screen: Does the patient meet any 2 criteria? No. Patient's initial sepsis screen is negative. Does the patient have a suspected source of infection? No. Patient's initial sepsis screen is negative. Care prior to arrival: None. 16:57 Method Of Arrival: Ambulatory aj 16:57 Acuity: MAURA 3 aj Triage Assessment: 16:58 General: Appears in no apparent distress. comfortable, Behavior is calm, cooperative, aj appropriate for age. Pain: Denies pain. Neuro: Level of Consciousness is awake, alert, obeys commands, Oriented to person, place, time, situation, Appropriate for age. Respiratory: Airway is patent Respiratory effort is even, unlabored, Respiratory pattern is regular, symmetrical. Derm: Skin is intact, is healthy with good turgor, Skin is pink, warm \T\ dry. normal. Historical: - Allergies: 16:58 Adhesives; aj 16:58 Ampicillin; aj 16:58 Nitrofurantoin; aj 16:58 Sulfa (Sulfonamide Antibiotics); aj - Home Meds: 16:58 Breo Ellipta inhalation [Active]; Coreg 25 mg Oral tab 1 tab 2 times per day [Active]; aj furosemide 20 mg Oral tab 1 tab once daily [Active]; gabapentin 100 mg Oral cap twice a day [Active]; hydroxyzine HCl 25 mg Oral tab [Active]; multivitamin Oral cap daily [Active]; pantoprazole 40 mg Oral TbEC 1 tab once daily [Active]; spironolactone 25 mg Oral tab 1 tab once daily [Active]; Tylenol PM Extra Strength 25-500 mg Oral tab once daily [Active]; - PMHx: 16:58 Arthritis; bells palsy; CHF; COPD; Diverticulitis; Hypertension; Osteoporosis; aj - PSHx: 16:58 Cholecystectomy; Appendectomy; stapedectomy; Hysterectomy; Tonsillectomy; Mastectomy aj Right; - Immunization history:: Adult Immunizations up to date. - Social history:: Smoking status: Patient/guardian denies using tobacco. - Ebola Screening: : Patient negative for fever greater than or equal to 101.5 degrees Fahrenheit, and additional compatible Ebola Virus Disease symptoms Patient denies exposure to infectious person Patient denies travel to an Ebola-affected area in the 21 days before illness onset No symptoms or risks identified at this time. Screenin:14 Abuse screen: Denies threats or abuse. Denies injuries from another. Nutritional mg2 screening: No deficits noted. Tuberculosis screening: No symptoms or risk factors identified. Fall Risk None identified. Assessment: 17:45 General: Appears in no apparent distress. comfortable, Behavior is calm, cooperative. mg2 Pain: Denies pain. Neuro: Level of Consciousness is awake, alert, obeys commands, Oriented to person, place, time, situation. Cardiovascular: Capillary refill < 3 seconds Patient's skin is warm and dry. Respiratory: Reports cough that is non-productive, dry, since ysterday Airway is patent Respiratory effort is even, unlabored, Respiratory pattern is regular, symmetrical, Breath sounds are clear bilaterally. in right upper lobe, left upper lobe, left posterior upper lobe, right posterior upper lobe, left posterior lower lobe, right posterior middle lobe and right posterior lower lobe. GI: No signs and/or symptoms were reported involving the gastrointestinal system. : No signs and/or symptoms were reported regarding the genitourinary system. EENT: No signs and/or symptoms were reported regarding the EENT system. Derm: Skin is intact, Skin is pink, warm \T\ dry. normal. Musculoskeletal: Circulation, motion, and sensation intact. 20:30 Reassessment: Patient appears in no apparent distress at this time. patient did not mg2 tolerate the levaquin IV. She felt dizzy, doesn't feel right. Provider informed. medication discontinued. Vital Signs: 16:58 BP 183 / 83; Pulse 85; Resp 17; Temp 98.3; Pulse Ox 96% on R/A; Weight 67.13 kg; Height aj 4 ft. 10 in. (147.32 cm); 17:43 BP 163 / 57; Pulse 79; Resp 17; Temp 98.3(O); Pulse Ox 97% on R/A; mh5 18:56 BP 179 / 72; Pulse 87; Resp 18; Pulse Ox 98% on R/A; mh5 19:48 BP 166 / 67; Pulse 75; Resp 20; Temp 98.4(O); Pulse Ox 98% on R/A; mh5 20:31 BP 160 / 73; Pulse 77; Resp 18; Temp 98.5; Pulse Ox 98% on R/A; Pain 0/10; mg2 16:58 Body Mass Index 30.93 (67.13 kg, 147.32 cm) aj ED Course: 16:49 Patient arrived in ED. mr 16:51 Carmine Webber MD is Private Physician. mr 16:57 Triage completed. aj 16:58 Arm band placed on right wrist. Patient placed in an exam room. aj 17:03 Valdez Tripathi PA is PHCP. cp 17:03 Jason Cosme MD is Attending Physician. cp 17:04 Jorge A Mckenna RN is Primary Nurse. mg2 17:39 Urine collected: clean catch specimen, cloudy, EKG done, by ED staff, reviewed by Valdez [facility] Bhumi DAMON Flu and/or RSV swab sent to lab. 17:41 Patient has correct armband on for positive identification. Placed in gown. Bed in low mh5 position. Call light in reach. Side rails up X 1. Adult w/ patient. Warm blanket given. Pulse ox on. NIBP on. 17:45 No provider procedures requiring assistance completed. Inserted saline lock: 22 gauge mg2 in left antecubital area, using aseptic technique. Blood collected. 18:14 XRAY Chest (1 view) In Process Unspecified. EDMS 19:48 Warm blanket given. mh5 19:49 Dalton Cotter MD is Hospitalizing Provider. cp 20:43 Patient admitted, IV remains in place. mg2 Administered Medications: Discontinued: LevaQUIN 500 mg 100 ml IVPB once over 60 mins 18:16 Drug: DuoNeb (3:1) (2.5 mg - 0.5 mg) 3 ml Route: Nebulizer; mg2 19:20 Follow up: Response: No adverse reaction; Marked relief of symptoms mg2 19:19 Drug: LevaQUIN 500 mg Volume: 100 ml; Route: IVPB; Infused Over: 60 mins; Site: left mg2 antecubital; 19:34 Drug: Rocephin - (cefTRIAXone) 1 grams Route: IVPB; Infused Over: 30 mins; Site: left mg2 antecubital; 20:44 Follow up: Response: No adverse reaction; IV Status: Completed infusion mg2 19:34 Drug: Zithromax 500 mg Route: IVPB; Infused Over: 1 hrs; Site: left antecubital; mg2 20:44 Follow up: Response: No adverse reaction; IV Status: Completed infusion mg2 Outcome: 19:49 Decision to Hospitalize by Provider. cp 20:43 Admitted to Tele accompanied by tech, via wheelchair, room 422, with chart, Report mg2 called to [place] 20:43 Condition: stable 20:43 Instructed on the need for admit, Demonstrated understanding of instructions. 21:01 Patient left the ED. mg2 Signatures: Dispatcher [employer] Sofia Alas RN RN aj Rivera, Mary mr Page, Corey, PA PA cp Martinez, Maria [facility] Jorge A Mckenna RN RN mg2
[2018-02-05] MEDS ORDERED: ACETAMINOPHEN 500 MG TAB PO PRN (20:36)
[2018-02-05] MEDS ORDERED: MAGNESIUM HYDROXIDE 8% 30 ML PO PRN (20:36)
[2018-02-05] MEDS ORDERED: ONDANSETRON 4 MG/2 ML VIAL IV PRN (20:36)
[2018-02-05] MEDS ORDERED: ALBUTEROL 2.5 MG/3 ML NEB SOL NEB SCH (21:00)
[2018-02-05] MEDS: NA CHLORIDE 0.9% 1,000 ML IV SCH (21:00)
[2018-02-05 21:27] VITALS: BMI 30.2
[2018-02-06] MEDS ORDERED: IPRATROPIUM BROM 0.5MG/2.5ML NEB SCH
[2018-02-06] MEDS: IPRATROPIUM BROM 0.5MG/2.5ML NEB SCH ×3 (01:30→13:41)
[2018-02-06 04:35] VITALS: O2SAT 94
[2018-02-06 05:59] LABS: Absolute Lymphocytes (CBC) 1.6 K/uL (0.7-4.9); Absolute Monocytes 1.2 K/uL (0.1-1.3); Absolute Neutrophil 8.9 K/uL (1.8-8.0); Basophils % 0.8 % (0-1.3); Eosinophils % 0.1 % (0-4.4); Hematocrit 31.3 % (36.0-45.0); Lymphocytes % 13.8 % (15.3-44.8); MCH 28.5 pg (27.0-35.0); MCV 83.4 fL (80-100); MPV 8.5 fL (7.6-11.3); RBC Red Blood Cell Count 3.75 M/uL (3.86-4.86)
[2018-02-06] MEDS ORDERED: Levofloxacin 750mg IV 750 MG/150 ML BAG IV SCH (06:00)
[2018-02-06 06:18] LABS: Albumin 2.9 g/dL (3.4-5.0); Bilirubin Total 0.6 mg/dL (0.2-1.0); Phosphorus 3.2 mg/dL (2.5-4.9); Potassium 3.2 mmol/L (3.5-5.1); Protein, Total 6.4 g/dL (6.4-8.2)
--- NOTE | 2018-02-06 06:45 | EKG ---
Test Date: 2018-02-05 Test Time: 17:29:30 Defensive Line Coach: MEASUREMENT RESULTS: Intervals: Rate: 79 OH: 148 QRSD: 128 QT: 388 QTc: 444 [place]: P: 53 OH: 148 QRS: 41 T: 52 INTERPRETIVE STATEMENTS: Normal sinus rhythm Right bundle branch block Abnormal ECG Compared to ECG 12/19/2017 05:44:31 No significant changes Electronically Signed On 02-06-18 06:44:20 CDT by Eduardo Ruelas
[2018-02-06] MEDS ORDERED: POTASSIUM 25 MEQ EFFERV TAB PO ONE (09:00)
[2018-02-06] MEDS ORDERED: CEFTRIAXONE/SWI 1gm 1 GM/10 ML SYR IV SCH (09:00)
[2018-02-06] MEDS ORDERED: CLINDAMYCIN INJ 600 MG in NA CHLORIDE 0.9% 50 ML IV SCH (09:00)
[2018-02-06] MEDS: NA CHLORIDE 0.9% 1,000 ML IV SCH (10:20)
--- NOTE | 2018-02-06 11:06 | P.HP ---
Certification for Inpatient Patient admitted to: Inpatient With expected LOS: >2 Midnights Patient will require the following post-hospital care: None Practitioner: I am a practitioner with admitting privileges, knowledge of patient current condition, hospital course, and medical plan of care. Services: Services provided to patient in accordance with Admission requirements found in Title 42 Section 412.3 of the Code of Federal Regulations Patient History Date of Service: 02/05/18 Reason for admission: Right middle lobe pneumonia History of Present Illness: Patient is an 87-year-old female came into the hospital with coughing congestion. She normally follows up with Dr. Webber. [facility] and came into the emergency room because she had developed a fever along with coughing. In the emergency room her workup revealed a right middle lobe pneumonia. She has been how coughing up some yellowish discolored sputum. She has been much more short of breath than normal. She came into the hospital for further evaluation. Her workup revealed right middle lobe pneumonia. She was started on IV antibiotics and admitted to the hospital for further treatment. Allergies ampicillin [Ampicillin] Allergy (Mild, Verified 12/19/17 11:30) Rash Sulfa (Sulfonamide Antibiotics) [Sulfa(Sulfonamide Antibiotics)] Allergy (Mild, Verified 12/19/17 11:30) Rash nitrofurantoin [From Macrobid] Allergy (Verified 12/19/17 11:30) Hives/Rash levofloxacin [From Levaquin] Adverse Reaction (Intermediate, Verified 12/19/17 11:30) Nausea/Vomiting Adhesives Allergy (Uncoded 12/19/17 11:30) Unknown Home Medications: Acetaminophen/Diphenhydramine [Tylenol Pm Ex-Strength Caplet] 1 tab PO BEDTIME 06/22/13 Multivitamin [Daily Multivitamin] 1 tab PO DAILY 06/22/13 Gabapentin [Neurontin*] 1 tab PO BID 04/08/15 Pantoprazole [Protonix Tab*] 40 mg PO DAILY 02/09/17 Carvedilol [Coreg*] 25 mg PO BID 6AM 6PM #60 tab 04/25/17 Fluticasone/Vilanterol [Breo Ellipta 200-25 Mcg INH] 1 puff IH DAILY 02/05/18 Furosemide 20 mg PO DAILY 02/05/18 Hydralazine HCl 50 mg PO BID 02/05/18 - Past Medical/Surgical History Has patient received pneumonia vaccine in the past: Yes Diabetic: No -: arthritis, hematoma, bronchitis -: Leal's palsy -: R. bundle branch blockage -: HTN, l cataract -: diastolic congestive heart failure -: COPD -: osteoporosis -: fracture T12 06/14 -: fracture metatarsal 06/14 -: broken pelvis 03/14 -: fracture L wrist 05/15 -: diverticulitis 12/14 -: tonsillectomy 1938 -: appendectomy 1948 -: stapedectomy 1965 (R ear) -: copper wire from Anvil to Stirrup 1969 (R ear) -: hysterectomy 1974 -: cholecystectomy 1989 -: moditified radical mastectomy (R breast) 06/11 - Family History Father Medical History: Stroke, Other (see notes) Notes: Parkinson's Syndrome Mother Medical History: Hypertension, Other (see notes) Notes: Dementia from HTN Brother Medical History: Heart disease, Hypertension, Diabetes, Other (see notes) Notes: Dementia - Social History Smoking Status: Former smoker Alcohol use: Yes CD- Drugs: No Caffeine use: Yes Place of Residence: [place] Review of Systems 10-point ROS is otherwise unremarkable Physical Examination - Vital Signs Temperature: 97 F Blood Pressure: 146/62 Pulse: 71 Respirations: 18 Pulse Ox (%): 96 - Physical Exam General: Alert, In no apparent distress, Oriented x3 HEENT: Atraumatic, PERRLA, Mucous membr. moist/pink, EOMI, Sclerae nonicteric Neck: Supple, 2+ carotid pulse no bruit, No LAD, Without JVD or thyroid abnormality Respiratory: Clear to auscultation bilaterally, Normal air movement Cardiovascular: Regular rate/rhythm, Normal S1 S2, No murmurs Gastrointestinal: Normal bowel sounds, Soft and benign, Non-distended, No rebound, No guarding, Tenderness Musculoskeletal: No clubbing, No swelling, No tenderness Integumentary: No rashes Neurological: Normal gait, Normal speech, Normal strength at 5/5 x4 extr, Normal tone, Sensation intact, Cranial nerves 3-12 intact, Normal affect Lymphatics: No axilla or inguinal lymphadenopathy - Studies Laboratory Data (last 24 hrs) 02/05/18 17:40: PT 12.0, INR 1.02 02/05/18 17:40: WBC 10.7, Hgb 12.3, Hct 36.5, Plt Count 295 02/05/18 17:40: Sodium 139, Potassium 3.4 L, BUN 15, Creatinine 1.30, Glucose 120 H, Magnesium 2.1, Total Bilirubin 0.5, AST 16, ALT 15, Alkaline Phosphatase 63 Microbiology Data (last 24 hrs): 02/05/18 17:40 Nasopharnyx Influenza Type A Antigen Screen - Final 02/05/18 17:40 Nasopharnyx Influenza Type B Antigen Screen - Final Assessment & Plan - Problems (Diagnosis) (1) Right middle lobe pneumonia Current Visit: Yes Status: Acute (2) Age-related osteoporosis without current pathological fracture Onset Date: 12/20/17 Current Visit: No Status: Acute (3) COPD exacerbation Current Visit: No Status: Acute (4) Diastolic CHF, chronic Onset Date: 12/20/17 Current Visit: No Status: Acute (5) Dyspnea Onset Date: 04/09/15 Current Visit: No Status: Acute (6) Hematochezia Current Visit: No Status: Acute (7) Paresthesia of skin Onset Date: 02/10/17 Current Visit: No Status: Acute (8) CKD (chronic kidney disease) Current Visit: No Status: Chronic Qualifiers: (9) Chronic obstructive pulmonary disease (COPD) Onset Date: 12/20/17 Current Visit: No Status: Chronic Qualifiers: (10) Hypertension Current Visit: No Status: Chronic - Plan 1. Continue with IV antibiotics 2. Awaiting sputum and blood culture 3. Repeat chest x-ray 4. Transfer care to PCP on Wednesday morning 5. May need pulmonary consultation if symptoms worsen 6. Continue with nebs as needed 7. O2 per protocol 8. Continue with gentle hydration 9. Repeat labs including CBC and renal function in a.m. 10. GI and DVT prophylaxis Discharge Plan: Home Plan to discharge in: Greater than 2 days - Advance Directives Does patient have a Living Will: Yes Does patient have a Durable POA for Healthcare: Yes - Code Status/Comfort Care Code Status Assessed: Yes Code Status: Full Code Critical Care: No Time Spent Managing PTS Care (In Minutes): 50
[2018-02-06 11:58] VITALS: BP 147/66; TEMP 98
[2018-02-06] MEDS ORDERED: METHYLPREDNISOLONE 125 MG INJ IV SCH (12:00)
--- NOTE | 2018-02-06 15:19 | P.SSS ---
Patient History Date of Service: 02/06/18 Reason for admission: Right middle lobe pneumonia History of Present Illness: Patient is an 87-year-old female came into the hospital with coughing congestion. She normally follows up with Dr. Webber. She lives at [facility] and came into the emergency room because she had developed a fever along with coughing. In the emergency room her workup revealed a right middle lobe pneumonia. She has been how coughing up some yellowish discolored sputum. She has been much more short of breath than normal. She came into the hospital for further evaluation. Her workup revealed right middle lobe pneumonia. She was started on IV antibiotics and admitted to the hospital for further treatment. Allergies ampicillin [Ampicillin] Allergy (Mild, Verified 12/19/17 11:30) Rash Sulfa (Sulfonamide Antibiotics) [Sulfa(Sulfonamide Antibiotics)] Allergy (Mild, Verified 12/19/17 11:30) Rash nitrofurantoin [From Macrobid] Allergy (Verified 12/19/17 11:30) Hives/Rash levofloxacin [From Levaquin] Adverse Reaction (Intermediate, Verified 12/19/17 11:30) Nausea/Vomiting Adhesives Allergy (Uncoded 12/19/17 11:30) Unknown Home Medications: Acetaminophen/Diphenhydramine [Tylenol Pm Ex-Strength Caplet] 1 tab PO BEDTIME 06/22/13 Multivitamin [Daily Multivitamin] 1 tab PO DAILY 06/22/13 Gabapentin [Neurontin*] 1 tab PO BID 04/08/15 Pantoprazole [Protonix Tab*] 40 mg PO DAILY 02/09/17 Carvedilol [Coreg*] 25 mg PO BID 6AM 6PM #60 tab 04/25/17 Fluticasone/Vilanterol [Breo Ellipta 200-25 Mcg INH] 1 puff IH DAILY 02/05/18 Furosemide 20 mg PO DAILY 02/05/18 Hydralazine HCl 50 mg PO BID 02/05/18 Azithromycin 500 mg PO DAILY #7 tablet 02/06/18 - Past Medical/Surgical History Has patient received pneumonia vaccine in the past: Yes Diabetic: No -: arthritis, hematoma, bronchitis -: Leal's palsy -: R. bundle branch blockage -: HTN, l cataract -: diastolic congestive heart failure -: COPD -: osteoporosis -: fracture T12 06/14 -: fracture metatarsal 06/14 -: broken pelvis 03/14 -: fracture L wrist 05/15 -: diverticulitis 12/14 -: tonsillectomy 1938 -: appendectomy 1948 -: stapedectomy 1965 (R ear) -: copper wire from [place] to [place] 1969 (R ear) -: hysterectomy 1974 -: cholecystectomy 1989 -: moditified radical mastectomy (R breast) 06/11 - Family History Father -: Stroke, Other (see notes) Notes: Parkinson's Syndrome Mother -: Hypertension, Other (see notes) Notes: Dementia from HTN Brother -: Heart disease, Hypertension, Diabetes, Other (see notes) Notes: Dementia - Social History Smoking Status: Former smoker Alcohol use: Yes CD- Drugs: No Caffeine use: Yes Place of Residence: [facility] Review of Systems 10-point ROS is otherwise unremarkable Physical Examination - Vital Signs Temperature: 98 F Blood Pressure: 147/66 Pulse: 73 Respirations: 16 Pulse Ox (%): 97 - Physical Exam General: Alert, In no apparent distress HEENT: Atraumatic, PERRLA, Mucous membr. moist/pink, EOMI, Sclerae nonicteric Neck: Supple, 2+ carotid pulse no bruit, No LAD, Without JVD or thyroid abnormality Respiratory: Clear to auscultation bilaterally, Normal air movement Cardiovascular: Regular rate/rhythm, Normal S1 S2 Gastrointestinal: Normal bowel sounds, No tenderness Musculoskeletal: No tenderness Integumentary: No rashes Neurological: Normal gait, Normal speech, Normal strength at 5/5 x4 extr, Normal tone, Normal affect Lymphatics: No axilla or inguinal lymphadenopathy - Studies Laboratory Data (last 24 hrs) 02/05/18 17:40: PT 12.0, INR 1.02 02/05/18 17:40: WBC 10.7, Hgb 12.3, Hct 36.5, Plt Count 295 02/05/18 17:40: Sodium 139, Potassium 3.4 L, BUN 15, Creatinine 1.30, Glucose 120 H, Magnesium 2.1, Total Bilirubin 0.5, AST 16, ALT 15, Alkaline Phosphatase 63 Microbiology Data (last 24 hrs): 02/05/18 17:40 Nasopharnyx Influenza Type A Antigen Screen - Final 02/05/18 17:40 Nasopharnyx Influenza Type B Antigen Screen - Final - Diagnosis (Problem(s)) (1) Right middle lobe pneumonia Current Visit: Yes Status: Acute Plan: Patient started on IV antibiotics here in the hospital. Pro calcitonin negative. Chest x-ray however concerning for right middle lobe pneumonia. Will go ahead and Dc patient as she is feeling better now on oral antibiotics. Patient was given a prescription for azithromycin on discharge. (2) Chronic bronchitis Onset Date: 12/20/17 Current Visit: No Status: Acute (3) Diastolic CHF, chronic Onset Date: 12/20/17 Current Visit: No Status: Acute (4) Osteoarthritis Onset Date: 12/20/17 Current Visit: No Status: Acute (5) Uncontrolled hypertension Onset Date: 12/20/17 Current Visit: No Status: Acute (6) Advanced chronic obstructive pulmonary disease Current Visit: No Status: Chronic (7) CKD (chronic kidney disease) Current Visit: No Status: Chronic Qualifiers: - Disposition Disposition: ROUTINE DISCHARGE Condition: GOOD Patient Discharge Instructions: please f.u with PCP in 1 to 2 week post discharge. New medication. Azithromycin 500mg Daily for 7 days Diet: Regular Activity: Ad alondra
[2018-02-06] MEDS ORDERED: BENZONATATE 100 MG CAP PO SCH (21:00)
== END 2018-02-06 15:24 | disposition home or self-care (01) | DRG 194 ==
LOC: ER 16:44 → ERHOLD 20:04 → 4TH 20:50
PROVIDERS: ADMIT Hospitalist; ATTEND Hospitalist
DX: J18.9 Pneumonia, unspecified organism (principal); J44.0 Chronic obstructive pulmonary disease with (acute) lower respiratory infection; I13.0 Hypertensive heart and chronic kidney disease with heart failure and stage 1 through stage 4 chronic kidney disease, or unspecified chronic kidney disease; I50.32 Chronic diastolic (congestive) heart failure; N18.9 Chronic kidney disease, unspecified; M81.0 Age-related osteoporosis without current pathological fracture; Z88.0 Allergy status to penicillin; Z88.2 Allergy status to sulfonamides
CPT/HCPCS: 36415; 71045; 80048; 80053; 80061; 80076; 81003; 81015; 83605; 83735; 83880; 84100; 84132; 84145; 84484; 85025; 85610; 87804; 93005; 94640; 94760; 96365; 96368; 96375; 99285; J0456; J0696; J2930; J7030

== ENCOUNTER 2018-02-08 16:00 | Observation (INO) | payer OTHER ==
[2018-02-08] MEDS ORDERED: ALBUTEROL 2.5 MG/3 ML NEB SOL IH PRN (16:47)
[2018-02-08] MEDS ORDERED: ACETAMINOPHEN 500 MG TAB PO PRN (16:50)
[2018-02-08 17:41] LABS: Absolute Lymphocytes (CBC) 2.2 K/uL (0.7-4.9); Absolute Monocytes 1.6 K/uL (0.1-1.3); Absolute Neutrophil 7.6 K/uL (1.8-8.0); Basophils % 0.8 % (0-1.3); Eosinophils % 0.1 % (0-4.4); Hematocrit 35.9 % (36.0-45.0); Lymphocytes % 19.4 % (15.3-44.8); MCH 28.2 pg (27.0-35.0); MCV 85.1 fL (80-100); Monocytes % 13.7 % (3.3-12.3); RBC Red Blood Cell Count 4.22 M/uL (3.86-4.86)
[2018-02-08 17:48] LABS: Potassium 3.8 mmol/L (3.5-5.1)
[2018-02-08] MEDS: NA CHLORIDE 0.9% 1,000 ML IV SCH (18:01)
[2018-02-08] MEDS: METHYLPREDNISOLONE 125 MG INJ IV SCH (18:01)
[2018-02-08] MEDS: AZITHROMYCIN IV 500 MG in NA CHLORIDE 0.9% 250 ML IVPB SCH (18:01)
[2018-02-08 18:57] VITALS: BMI 30.1
[2018-02-08] MEDS: IPRATROPIUM BROM 0.5MG/2.5ML IH SCH (20:23)
[2018-02-08] MEDS: ALBUTEROL 2.5 MG/3 ML NEB SOL IH SCH (20:23)
[2018-02-08] MEDS: TEMAZEPAM 15 MG CAP PO PRN (21:41)
[2018-02-08 23:16] LABS: Urine Appearance CLEAR; Urine Bilirubin NEGATIVE (NEG); Urine Blood NEGATIVE (NEG); Urine Color YELLOW; Urine Glucose NEGATIVE (NEG); Urine Protein TRACE (NEG); Urine Urobilinogen 0.2 mg/dL (0.2-1.0); Urine pH 5.5 (5.0-7.0)
[2018-02-08 23:21] LABS: Urine Microscopic Reflex ORDER UMIC
[2018-02-09 00:58] LABS: Urine Bacteria <20 /HPF (<20); Urine RBC <5 /HPF (NONE SEEN)
[2018-02-09 00:59] LABS: Urine Culture Reflex Order NOT NEEDED
[2018-02-09] MEDS: ALBUTEROL 2.5 MG/3 ML NEB SOL IH SCH ×4 (02:21→20:07)
[2018-02-09] MEDS: IPRATROPIUM BROM 0.5MG/2.5ML IH SCH ×4 (02:21→20:07)
[2018-02-09] MEDS: NA CHLORIDE 0.9% 1,000 ML IV SCH ×3 (06:09→23:00)
--- NOTE | 2018-02-09 06:41 | RAD REPORT ---
EXAM DESCRIPTION: RAD - Chest Pa And Lat (2 Views) - 02/09/2018 5:11 am CLINICAL HISTORY: Cough, pneumonia, shortness of breath COMPARISON: February 05 portable chest, April 2017 Two view chest TECHNIQUE: PA and lateral views of the chest were obtained. FINDINGS: The lungs are fibrotic as a baseline. Diaphragm is flattened. Posterior costophrenic angle blunting is probably the affects of the pleural scarring. Lung markings show no new or progressive f inding. A focal consolidation is not seen. Acute failure is not seen. Heart size is normal and cent ral vasculature is within normal limits. No pleural effusion or pneumothorax seen. Osteopenic and d egenerative bony changes are present. Partial compression fractures near the thoracolumbar junction a re stable. No aortic abnormality. IMPRESSION: Fibrotic and obstructive lung changes are evident without a new or progressive cardiopul monary finding since February 05.
[2018-02-09] MEDS ORDERED: PNEUMOCOCCAL VACCINE 0.5 ML IMVAC ONE (09:00)
[2018-02-09] MEDS: HYDRALAZINE HCL 25 MG TABLET PO SCH (09:06)
[2018-02-09] MEDS: PANTOPRAZOLE 40MG TABLET PO SCH (09:06)
[2018-02-09] MEDS: CARVEDILOL 25 MG TAB PO SCH (09:06)
[2018-02-09] MEDS: METHYLPREDNISOLONE 125 MG INJ IV SCH ×2 (09:08→21:35)
[2018-02-09] MEDS: AZITHROMYCIN IV 500 MG in NA CHLORIDE 0.9% 250 ML IVPB SCH (16:34)
--- NOTE | 2018-02-09 20:27 | HP ---
Date of Admission: 02/08/2018 Entrance Complaint: Cough, chills, anorexia, general malaise. History Of Present Illness: The patient was seen in the office 72 hours after discharge from the [facility]. She was admitted with the diagnosis of middle lobe pneumonia on the right. Given some IV ant ibiotics, IV steroids, states she felt somewhat better and then was discharged. Since she has been a t home, she had 1 good day, the day when she was seen in the office she had a significant chill, decr eased appetite, began feeling the same way she did when she presented to the hospital with increasing dyspnea. She was seen obviously dehydrated, toxic appearing, and was admitted for more intensive ca re, not sure whether this was the relapse or just a progression and this will be evaluated when she i s admitted. Past Medical History: The patient has a long history of pulmonary problems including pneumonia, whic h has required hospitalization. Approximately 6 weeks ago she got quite dehydrated and requires IV f luids for an overnight hospital stay. Social History: Nonsmoker, nondrinker. Family History: Noncontributory. Physical Examination: General: The patient is a toxic appearing elderly female with hypotension with her blood pressure at 90/66, otherwise vital signs are okay. Head and neck: Normocephalic. Pupils equal, reactive to light and accommodation. Fundi negative. Trachea midline. Thyroid not palpable. ENT: Negative. Chest: Bilateral rhonchi in both bases. Few rales at the right lower base. Adequate air entry and movement. O2 saturation okay. Cardiovascular: PMI midclavicular line. Heart: Sounds normal. Peripheral pulses are present and equal bilaterally. Abdomen: No organomegaly. Bowel sounds present. Extremities: Marked dehydration. Good tone and movement bilaterally. Reflexes physiologic. Rectal and pelvic: Deferred. Impression: Pneumonia and dehydration. Plan: The patient will be admitted. Placed on IV fluids, IV antibiotics, breathing treatments, and some steroids. HR/MODL Voice ID: [id number]
--- NOTE | 2018-02-09 21:27 | PN ---
Date of Progress Note: 02/09/2018 The patient states she feels considerably better today. Still has a slightly dry cough. No chills. Her intake is improved. Obvious diagnosis was marked dehydration. She had 2+ ketonuria. Potassium and sodium were corrected. Her chest x-ray actually had improved. She should be able to be dischar ged in the a.m. completing her antibiotics here and change her hydration pattern at home including so me adjustments of her diuretic. HR/MODL Voice ID: [id number] Report ID: [id number]
[2018-02-09] MEDS: TEMAZEPAM 15 MG CAP PO PRN (21:39)
[2018-02-10] MEDS: ALBUTEROL 2.5 MG/3 ML NEB SOL IH SCH ×3 (02:12→14:00)
[2018-02-10] MEDS: IPRATROPIUM BROM 0.5MG/2.5ML IH SCH ×3 (02:12→14:00)
[2018-02-10 05:15] LABS: Urine Appearance CLEAR; Urine Bilirubin NEGATIVE (NEG); Urine Blood NEGATIVE (NEG); Urine Color YELLOW; Urine Glucose NEGATIVE (NEG); Urine Protein NEGATIVE (NEG); Urine Urobilinogen 0.2 mg/dL (0.2-1.0)
[2018-02-10 05:38] LABS: Urine Microscopic Reflex NO UMIC
[2018-02-10 05:49] LABS: Absolute Lymphocytes (CBC) 1.1 K/uL (0.7-4.9); Absolute Monocytes 0.5 K/uL (0.1-1.3); Absolute Neutrophil 7.6 K/uL (1.8-8.0); Basophils % 0.2 % (0-1.3); Hematocrit 32.6 % (36.0-45.0); Lymphocytes % 12.1 % (15.3-44.8); MCH 28.7 pg (27.0-35.0); MCV 83.7 fL (80-100); MPV 8.8 fL (7.6-11.3); Monocytes % 5.3 % (3.3-12.3)
[2018-02-10 06:06] LABS: Potassium 4.1 mmol/L (3.5-5.1)
[2018-02-10 08:40] VITALS: O2SAT 93
[2018-02-10] MEDS: CARVEDILOL 25 MG TAB PO SCH (09:01)
[2018-02-10] MEDS: HYDRALAZINE HCL 25 MG TABLET PO SCH (09:01)
[2018-02-10] MEDS: PANTOPRAZOLE 40MG TABLET PO SCH (09:01)
[2018-02-10] MEDS: NA CHLORIDE 0.9% 1,000 ML IV SCH (09:02)
[2018-02-10] MEDS: METHYLPREDNISOLONE 125 MG INJ IV SCH (09:02)
[2018-02-10 10:33] VITALS: TEMP 97.2
[2018-02-10 17:39] VITALS: BP 179/81
--- NOTE | 2018-02-11 21:32 | PN ---
Date of Progress Note: 02/10/2018 Subjective: The patient feels much better. Her blood work is stable. Her urine is . Her appetite is still decreased, I suspect secondary to the antibiotics. She felt discharged . Hydrated back to baseline. We are holding her diuretic and giving her some oral prednisone, to be followed up in 4-5 days in the office. Obviously, the major presentation here was secondary to her dehydration. Infection seems to be under control. HR/MODL Voice ID: [id number] Report ID: [id number]
== END 2018-02-10 15:07 | disposition home or self-care (01) ==
LOC: 2ND 16:26
PROVIDERS: ADMIT Family Medicine; ATTEND Family Medicine
DX: J18.9 Pneumonia, unspecified organism (principal); E86.0 Dehydration; Z23 Encounter for immunization; Z88.0 Allergy status to penicillin; Z88.2 Allergy status to sulfonamides
CPT/HCPCS: 36415 ×2; 71046; 80048 ×2; 81003; 85025 ×2; 87040 ×2; 87070; 87205; 90670; 94640; G0009; G0378; G0379; J0456 ×3; J2930 ×4; J7030 ×3; 81015

== ENCOUNTER 2018-02-16 11:08 | Observation (INO) | payer OTHER ==
[2018-02-16] MEDS ORDERED: ONDANSETRON 4 MG/2 ML VIAL IV PRN (12:22)
[2018-02-16] MEDS ORDERED: ACETAMINOPHEN 500 MG TAB PO PRN (12:25)
[2018-02-16 12:33] LABS: Absolute Lymphocytes (CBC) 2.7 K/uL (0.7-4.9); Absolute Monocytes 1.2 K/uL (0.1-1.3); Absolute Neutrophil 6.9 K/uL (1.8-8.0); Basophils % 0.6 % (0-1.3); Eosinophils % 1.4 % (0-4.4); Hematocrit 34.5 % (36.0-45.0); Lymphocytes % 24.6 % (15.3-44.8); Monocytes % 11.2 % (3.3-12.3); RBC Red Blood Cell Count 4.14 M/uL (3.86-4.86)
[2018-02-16 13:00] LABS: Blood Morphology Comment NOT SEEN (NOT SEEN); Platelet Estimate ADEQ; Urine White Blood Cell Casts OK
--- NOTE | 2018-02-16 14:01 | RAD REPORT ---
EXAM DESCRIPTION: US - Extrem Venous W Compress Michael - 02/16/2018 1:55 pm CLINICAL HISTORY: r/o dvt Bilateral leg edema and swelling. COMPARISON: Extrem Venous W Compress Michael dated 05/02/2017 TECHNIQUE: Real-time sonographic interrogation of the left and right lower extremity deep venous sys tems was performed. FINDINGS: Normal compressibility, flow augmentation, phasic flow and spontaneous flow is identified in both the left and right lower extremity deep venous systems. IMPRESSION: No sonographic evidence of left or right lower extremity deep venous thrombosis.
--- NOTE | 2018-02-16 14:02 | RAD REPORT ---
EXAM DESCRIPTION: US - Renal Ultrasound-Complete - 02/16/2018 1:54 pm CLINICAL HISTORY: renal failure COMPARISON: No comparisons FINDINGS: Both kidneys are mildly echogenic. Renal size is mildly reduced bilaterally. The right kidney measures 8.2 x 4.7 x 3.8 cm. No hydronephrosis, focal mass or perinephric fluid. The left kidney measures 8.4 x 5.4 x 4.7 cm. No hydronephrosis, focal mass or perinephric fluid. The urinary bladder is incompletely distended without gross abnormality seen. IMPRESSION: Mildly echogenic kidneys bilaterally likely indicating mild medical renal disease.
--- NOTE | 2018-02-16 14:03 | RAD REPORT ---
EXAM DESCRIPTION: US - Upper Lower Extrem Art Multi - 02/16/2018 1:55 pm CLINICAL HISTORY: PVD Claudication COMPARISON: Extrem Venous W Compress Michael dated 02/16/2018 TECHNIQUE: Bilateral lower extremity arterial Doppler examination was performed with waveform tracin g and ankle brachial pressure measurements. FINDINGS: Symmetric brachial pressure measurements are noted. Triphasic waveforms are seen throughout both lower extremity arterial systems to the level of the [place] arteries. Right ankle brachial index measures 1.2, normal. Left ankle brachial index measures 1.1, normal. IMPRESSION: No evidence of significant peripheral vascular disease.
--- NOTE | 2018-02-16 14:24 | RAD REPORT ---
EXAM DESCRIPTION: RAD - Chest Single View - 02/16/2018 2:10 pm CLINICAL HISTORY: COPD Chest pain. COMPARISON: Chest Pa And Lat (2 Views) dated 02/09/2018; Chest Single View dated 02/05/2018; Chest Sin gle View dated 05/02/2017; Chest Pa And Lat (2 Views) dated 04/24/2017 FINDINGS: Portable technique limits examination quality. The lungs are mildly emphysematous but clear. The heart is mildly enlarged in size. No displaced frac tures. IMPRESSION: No acute intrathoracic process suspected. Mild COPD.
[2018-02-16 16:14] LABS: Urine Appearance CLEAR; Urine Bilirubin NEGATIVE (NEG); Urine Blood NEGATIVE (NEG); Urine Color YELLOW; Urine Glucose NEGATIVE (NEG); Urine Protein NEGATIVE (NEG); Urine Urobilinogen 0.2 mg/dL (0.2-1.0); Urine pH 7.5 (5.0-7.0)
[2018-02-16 16:17] LABS: Urine Microscopic Reflex NO UMIC
[2018-02-16] MEDS: CARVEDILOL 12.5 MG TAB PO SCH (17:31)
[2018-02-16] MEDS: CLINDAMYCIN INJ 900 MG in NA CHLORIDE 0.9% 50 ML IV SCH ×2 (17:31→21:00)
[2018-02-16 17:37] LABS: Protime INR 0.97
--- NOTE | 2018-02-16 17:38 | EKG ---
Test Date: 2018-02-16 Test Time: 14:25:17 Hospital Admitting Clerk: SKINNY MEASUREMENT RESULTS: Intervals: Rate: 70 DE: 144 QRSD: 118 QT: 422 QTc: 455 [place]: P: 87 DE: 144 QRS: 73 T: 76 INTERPRETIVE STATEMENTS: Normal sinus rhythm Right bundle branch block Abnormal ECG Compared to ECG 02/05/2018 17:29:30 No significant changes Electronically Signed On 02-16-18 17:37:41 CDT by Eduardo Ruelas
[2018-02-16 17:58] LABS: Albumin 3.3 g/dL (3.4-5.0); Bilirubin Direct 0.2 mg/dL (0-0.2); Bilirubin Total 0.5 mg/dL (0.2-1.0); Protein, Total 6.9 g/dL (6.4-8.2); Thyroid Stimulating Hormone 1.66 uIU/mL (0.360-3.740); Uric Acid 6.2 mg/dL (2.6-6.0)
[2018-02-16] MEDS: HYDRALAZINE HCL 25 MG TABLET PO SCH (20:44)
[2018-02-16] MEDS: ACETAMINOPHEN PO SCH (20:45)
[2018-02-16] MEDS: DIPHENHYDRAMINE PO SCH (20:45)
--- NOTE | 2018-02-17 04:13 | CON ---
Date of Consultation: 02/16/2018 Reason For Consultation: Edema, elevated BUN and creatinine. History Of Present Illness: This is an -mruj-cnx female with significant past medical hist ory of COPD, hypertension, recently admitted to the hospital with COPD exacerbation, questionable bro nchitis/pneumonia. Treated, and recovered, then bounced back with dehydration, and acute kidney inju ry, treated with hydration holding the Lasix, and discharged. The patient after couple of days, star thai to have significant lower extremity swelling. For that reason, the patient was approached. She started developing some cellulitis on the lower extremity. The patient admits that she denied taking any nonsteroidal. No IV contrast. The patient had couple of antibiotic in the last couple of admissions. According to the patient, when she was on Lasix, the swelling was subsided significantly. Past Medical History: Includes: 1.Hypertension. 2.COPD. Social History: Denies smoking. Denies drinking. Family History: Positive for hypertension. Past Surgical History: Noncontributory. Review of Systems: Head and Neck: No red eye. No ear pain. GI: No nausea, no vomiting. : No polyuria. She has incontinence. Production Dispatcher: No vaginal discharge/ Respiratory: No shortness of breath. Cardiovascular: Has leg swelling. Endocrine: No polydipsia. Skin: No rash. Has erythema on the neck. Neuro: No weakness. Musculoskeletal: No joint pain. Physical Examination: Vital Signs: Blood pressure 181/71, pulse of 67. Afebrile. Chest: Clear to auscultation. Heart: S1, S2. Regular. Abdomen: Soft, nontender. Extremities: +2 edema. Erythema on the neck. Laboratory Data: WBC 11.1, H and H 11.7/34.5, platelet 340. Sodium 139, potassium 3.9, bicarb 31, B UN 15, creatinine 1.4, calcium 9.5. Reviewing the record back in early this month, her creatinine 0. 9, GFR of 59. The patient had TSH 2 years back, within normal limit. Reviewing the record, the katherin ent had SPEP was done back in February 2017. 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 Home Medications: Include Lasix, multivitamin, pantoprazole, carvedilol. Current medications in the hospital include carvedilol, clindamycin, hydralazine, pantoprazole. Assessment And Plan: Acute kidney [id number] kidney disease secondary to overdiuresis with se moses third spacing and we are going to go ahead and start the patient on albumin and Lasix to mobiliz e third space fluid and we will monitor the patient. 1.I am going to go ahead and send for renal ultrasound, and TSH, and we will follow up. 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 As above, I am going to diurese the patient. We will use albumin with Lasix to mobilize third space, and I am going to send for protein creatini ne to quantify the urine proteinuria, and we will follow up. 3.Cellulitis. We will continue antibiotic. We follow up with primary. LIZABETH Voice ID: [id number] Report ID: [id number]
[2018-02-17] MEDS: CARVEDILOL 12.5 MG TAB PO SCH ×2 (05:21→17:47)
[2018-02-17] MEDS: PANTOPRAZOLE 40MG TABLET PO SCH (05:21)
[2018-02-17] MEDS ORDERED: CLINDAMYCIN INJ 900 MG in NA CHLORIDE 0.9% 50 ML IV SCH (05:30)
[2018-02-17 06:18] LABS: Albumin 2.8 g/dL (3.4-5.0); Phosphorus 3.1 mg/dL (2.5-4.9); Potassium 3.6 mmol/L (3.5-5.1)
--- NOTE | 2018-02-17 07:23 | ECHO ---
HEIGHT: 4 ft 10 in WEIGHT: 151 lb 9.6 oz DATE OF STUDY: 02/16/[address]: Carmine Webber MD 2-DIMENSIONAL: YES M.MODE: YES DOPPLER: YES COLOR FLOW: YES TDS: PORTABLE: DEFINITY: BUBBLE STUDY: DIAGNOSIS: RULE OUT DEEP VEIN THROMBOSIS CARDIAC HISTORY: CATHERIZATION: YES SURGERY: NO PROSTHETIC VALVE: NO PACEMAKER: NO MEASUREMENTS (cm) DIASTOLIC (NORMALS) SYSTOLIC (NORMALS) IVSd 0.9 (0.6-1.2) LA Diam 4.1 (1.9-4.0) LVEF 79% LVIDd 3.8 (3.5-5.7) LVIDs 2.0 (2.0-3.5) %FS 47% LVPWd 1.0 (0.6-1.2) Ao Diam 2.6 (2.0-3.7) 2 DIMENSIONAL ASSESSMENT: RIGHT ATRIUM: NORMAL LEFT ATRIUM: DILATED RIGHT VENTRICLE: NORMAL LEFT VENTRICLE: NORMAL TRICUSPID VALVE: NORMAL MITRAL VALVE: NORMAL PULMONIC VALVE: NORMAL AORTIC VALVE: NORMAL PERICARDIAL EFFUSION: NONE AORTIC ROOT: NORMAL LEFT VENTRICULAR WALL MOTION: NORMAL DOPPLER/COLOR FLOW: MILD MITRAL AND TRICUSPID REGURGITATION. ESTIMATED RIGHT VENTRICULAR SYSTOLIC PRESSURE 41 mmHg (MILD PULMONARY HYPERTENSION). COMMENTS: NORMAL LEFT VENTRICULAR EJECTION FRACTION. DILATED LEFT ATRIUM. MILD MITRAL AND TRICUSPID REGURGITATION. TECHNOLOGIST: JOHN CARDENAS
[2018-02-17] MEDS: HOME MED 1 EA UNK (Fluticasone/Vilanterol [Breo Ellipta 200-25 Mcg Inh] 1 PUFF) IH SCH (09:00)
[2018-02-17] MEDS ORDERED: FUROSEMIDE 40 MG/4 ML VIAL IV SCH (09:00)
[2018-02-17] MEDS: ALBUMIN HUMAN 25% 100 ML IV SCH ×2 (09:00→12:12)
[2018-02-17] MEDS: HYDRALAZINE HCL 25 MG TABLET PO SCH ×3 (10:05→21:10)
[2018-02-17] MEDS ORDERED: NA CHLORIDE 0.9% 100 ML ONE (12:15)
[2018-02-17] MEDS: FUROSEMIDE 40 MG/4 ML VIAL IV SCH ×2 (13:17→21:10)
[2018-02-17 13:47] LABS: Urine Protein/Creatinine Ratio 0.42 ratio (<0.15)
[2018-02-17] MEDS ORDERED: CARVEDILOL 12.5 MG TAB PO PRN (16:50)
[2018-02-17 20:19] LABS: Urine Total Volume 24 Hours 3170 ml
[2018-02-17 20:58] LABS: 24H UR CREAT 476 mg/24H (600-2000)
[2018-02-17] MEDS: DIPHENHYDRAMINE PO SCH (21:00)
[2018-02-17] MEDS: ACETAMINOPHEN PO SCH (21:00)
[2018-02-17] MEDS: CLINDAMYCIN INJ 300 MG in NA CHLORIDE 0.9% 50 ML IV SCH (21:00)
[2018-02-17] MEDS: ENOXAPARIN 30 MG/0.3 ML SQ SCH (21:11)
[2018-02-17 21:27] LABS: UR PROTEIN < 5 mg/dL (<11.9)
--- NOTE | 2018-02-17 22:47 | P.PN ---
Subjective Date of Service: 02/17/18 Chief Complaint: LE edema Pt with Hx of COPD and remote Breast CA , sent by her PCP for LE edema No nausea , vomiting, chest pain, SOB , no dysuria , hematuria Physical Examination - Vital Signs Temperature: 97.4 F Blood Pressure: 138/62 Pulse: 74 Respirations: 18 Pulse Ox (%): 92 - Physical Exam General: Oriented x3 HEENT: Atraumatic Respiratory: Inspiratory wheezes Cardiovascular: Edema Gastrointestinal: Normal bowel sounds - Studies Laboratory Data (last 24 hrs) 02/17/18 05:18: Sodium 138, Potassium 3.6, BUN 12, Creatinine 1.10, Glucose 115 H, Phosphorus 3.1 Assessment And Plan - Current Problems (Diagnosis) (1) Chronic bronchitis Onset Date: 12/20/17 Current Visit: No Status: Chronic (2) Diastolic CHF, chronic Onset Date: 12/20/17 Current Visit: No Status: Acute (3) Hypertension Current Visit: No Status: Chronic - Plan An 88_-Y/O woman with PMhx of COPD, hypertension, Leal's Bulsy, remote Hx of Breast CA S/P mastectomy, no chemo therpay required Sent by her PCP for LE edema pt have hx of LE edema on lasix, recently her edema is not responding to lasix, I/O studies with PCP as per pt revealed I=O no chest pain, palpitation, nausea, vomiting or diarrhea BP was uncontrolled Assessment And Plan: 1. CKD III Cr baseline 1.0-1.3 Renal diet Adjust meds as per RFT Renal US 8.2cm B/l, mild echogenic 2. LE edema serum alb on admission 3.3 TTE: LVEF >60%, mild Pul HTN UPC 0.4 F/U 24hrs urine for prot and Cr F/U SPEP, serum IEF and K/L will cont lasix 3. Lt leg erythema skin care
--- NOTE | 2018-02-18 03:51 | PN ---
Date of Progress Note: 02/17/2018 The patient has been seen by Nephrology. Her Lasix was restarted. The protein infusion was held unt il further lab results were present. Echo, ultrasounds of kidney, and bilateral arterial venous Dopp lers were basically negative. Today, her legs have much improved. She is diuresing considerable karina unt frequently enough that she was getting exhausted and therefore catheter was inserted. The areas of cellulitis are now markedly less and have shrunken considerably. There was a question whether the re was a combination of cellulitis and marked peripheral edema. Therefore, the clindamycin was decre ased. Her blood pressure was slightly out of control, and beta blockers, which were decreased being on a p.r.n. basis and the addition of Aldactone as well by Nephrology. Depending on the outcome of f urther testing, the patient may require another day or two of balancing her medication prior to being discharged. HR/MODL Voice ID: [id number] Report ID: [id number]
--- NOTE | 2018-02-18 03:56 | HP ---
Date of Admission: 02/16/2018 Entrance Complaint: Swollen legs, general malaise. History Of Present Illness: The patient has a rather complex history over the past few weeks, it was precipitated what was felt to be an acute gastroenteritis episode. She was admitted, IV fluids, thi s improved. She then was readmitted from the emergency room which was felt to either be an acute exa cerbation of COPD and/or bronchial pneumonia. Once again, she responded quickly in the hospital care and was discharged. She was okay for few more days and then she became quite weak seen in the offic e, was obviously dehydrated. She was admitted for further care. At that time revealed significant d ehydration and renal insufficiency. She was treated with IV fluids. Lasix was held. She felt consi derably better. She was discharged and 3 days later she noticed some swelling of her legs, seen in t he office, had marked peripheral edema associated with cellulitis on the left leg which in fact had b een present in the past as well and was therefore decided to readmit her for further treatment and ev aluation. Past History: As above. The patient has also had a long history of hypertension, which is relativel y good control. Her COPD is also controlled with inhalation therapy. Social History: Noncontributory. Family History: Hypertension. Physical Examination: General: The patient is a rather uncomfortable appearing elderly female with marked peripheral edema of lower extremities bilaterally. Head and Neck: Normocephalic. Pupils equal, reactive to light and accommodation. Fundi negative. Trachea midline. Thyroid not palpable. ENT: Negative. Chest: Occasional high-pitched rhonchi. No rales. Adequate air entry and movement bilaterally. Cardiovascular: PMI midclavicular line. Heart: Sounds normal. Peripheral pulses are present and equal bilaterally. Abdomen: No organomegaly. Bowel sounds present. Extremities: Good tone and movement bilaterally. Reflexes physiologic. However, she has +2 to 3 bi lateral pitting edema below the knees and also has marked erythema of the left lower leg with some ec chymotic areas as well. Impression: Peripheral edema, unknown etiology, possibly hypoproteinemia, which has shown borderline and low on prior recent blood work; renal insufficiency; hypertension, controlled. Chronic obstructi ve pulmonary disease, controlled. Plan: The patient will be admitted. Depending on the results of the lab work, consultation obtained with Nephrology for the use of possible protein infusion associated with diuresis. Legs will be Dop pler'ed to make sure there are no clots, and depending on these results, further treatment will be in stituted. HR/MODL Voice ID: [id number]
[2018-02-18] MEDS: PANTOPRAZOLE 40MG TABLET PO SCH (05:19)
[2018-02-18] MEDS: CARVEDILOL 12.5 MG TAB PO SCH ×2 (05:19→17:33)
[2018-02-18 06:16] LABS: Absolute Lymphocytes (CBC) 2.5 K/uL (0.7-4.9); Absolute Monocytes 1.3 K/uL (0.1-1.3); Absolute Neutrophil 9.7 K/uL (1.8-8.0); Basophils % 0.7 % (0-1.3); Eosinophils % 0.4 % (0-4.4); Hematocrit 37.8 % (36.0-45.0); Lymphocytes % 18.2 % (15.3-44.8); MPV 8.3 fL (7.6-11.3); Monocytes % 9.3 % (3.3-12.3); RBC Red Blood Cell Count 4.54 M/uL (3.86-4.86)
[2018-02-18 06:34] LABS: Albumin 3.2 g/dL (3.4-5.0); Phosphorus 3.2 mg/dL (2.5-4.9); Potassium 3.2 mmol/L (3.5-5.1)
[2018-02-18 07:15] LABS: Urine Appearance CLEAR; Urine Bilirubin NEGATIVE (NEG); Urine Blood NEGATIVE (NEG); Urine Color YELLOW; Urine Glucose NEGATIVE (NEG); Urine Protein NEGATIVE (NEG); Urine Urobilinogen 0.2 mg/dL (0.2-1.0); Urine pH 6.5 (5.0-7.0)
[2018-02-18 07:16] LABS: Urine Microscopic Reflex ORDER UMIC
[2018-02-18 07:23] LABS: Urine RBC <5 /HPF (NONE SEEN)
[2018-02-18 07:24] LABS: Urine Bacteria 20-50 /HPF (<20); Urine Culture Reflex Order REFLEXED
[2018-02-18 07:50] LABS: Blood Morphology Comment NOT SEEN (NOT SEEN); Platelet Estimate ADEQ; Urine White Blood Cell Casts OK
[2018-02-18] MEDS: HOME MED 1 EA UNK (Fluticasone/Vilanterol [Breo Ellipta 200-25 Mcg Inh] 1 PUFF) IH SCH (09:00)
[2018-02-18] MEDS: FUROSEMIDE 40 MG/4 ML VIAL IV SCH ×2 (09:00→17:32)
[2018-02-18] MEDS ORDERED: NA CHLORIDE 0.9% 100 ML ONE (09:15)
[2018-02-18] MEDS: ENOXAPARIN 30 MG/0.3 ML SQ SCH (09:55)
[2018-02-18] MEDS: HYDRALAZINE HCL 25 MG TABLET PO SCH ×2 (09:56→20:13)
[2018-02-18] MEDS: CLINDAMYCIN INJ 300 MG in NA CHLORIDE 0.9% 50 ML IV SCH ×2 (09:57→20:13)
[2018-02-18] MEDS ORDERED: POTASSIUM 25 MEQ EFFERV TAB PO ONE (10:35)
--- NOTE | 2018-02-18 12:05 | P.PN ---
Subjective Date of Service: 02/18/18 Chief Complaint: LE edema Patient seen and examined at bedside with RN. Chart reviewed. Case discussed with nephrology. Overall patient is doing much better than before. Review of Systems 10-point ROS is otherwise unremarkable Physical Examination - Vital Signs Temperature: 97.3 F Blood Pressure: 142/66 Pulse: 90 Respirations: 16 Pulse Ox (%): 93 - Physical Exam General: Alert, In no apparent distress HEENT: Atraumatic, PERRLA, EOMI Neck: Supple, JVD not distended Respiratory: Normal air movement, Crackles/rales Cardiovascular: Regular rate/rhythm, Normal S1 S2, Edema Gastrointestinal: Normal bowel sounds, No tenderness Musculoskeletal: Swelling (Bilateral lower extremity swelling 2+ edema) Integumentary: No rashes Neurological: Normal speech, Normal tone, Normal affect Lymphatics: No axilla or inguinal lymphadenopathy - Studies Laboratory Data (last 24 hrs) 02/18/18 05:21: WBC 13.6 H D, Hgb 12.8, Hct 37.8, Plt Count 366 02/18/18 05:21: Sodium 135 L, Potassium 3.2 L, BUN 10, Creatinine 1.10, Glucose 98, Phosphorus 3.2 Medications List Reviewed: Yes Assessment And Plan - Current Problems (Diagnosis) (1) Diastolic CHF, chronic Onset Date: 12/20/17 Current Visit: No Status: Acute Plan: Acute on chronic diastolic dysfunction noted. 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
--- NOTE | 2018-02-18 12:14 | P.PN ---
Subjective Date of Service: 02/18/18 Chief Complaint: LE edema Pt with Hx of COPD and remote Breast CA , sent by her PCP for LE edema No nausea , vomiting, chest pain, SOB , no dysuria , hematuria Today edema much improved low K , replaced UPC 0.4 SPEP, UPEP, K/l will rpt 24hrs urine studies as specimen showed low cr edema much improved , will cut lasix to daily tomorrow Physical Examination - Vital Signs Temperature: 97.3 F Blood Pressure: 142/66 Pulse: 90 Respirations: 16 Pulse Ox (%): 93 - Physical Exam General: Oriented x3 Neck: Supple, JVD not distended Respiratory: Inspiratory wheezes Cardiovascular: Regular rate/rhythm, Normal S1 S2, Edema - Studies Laboratory Data (last 24 hrs) 02/18/18 05:21: WBC 13.6 H D, Hgb 12.8, Hct 37.8, Plt Count 366 02/18/18 05:21: Sodium 135 L, Potassium 3.2 L, BUN 10, Creatinine 1.10, Glucose 98, Phosphorus 3.2 Medications List Reviewed: Yes Assessment And Plan - Current Problems (Diagnosis) (1) Chronic bronchitis Onset Date: 12/20/17 Current Visit: No Status: Chronic (2) Diastolic CHF, chronic Onset Date: 12/20/17 Current Visit: No Status: Acute (3) Hypertension Current Visit: No Status: Chronic - Plan An 88_-Y/O woman with PMhx of COPD, hypertension, Leal's Bulsy, remote Hx of Breast CA S/P mastectomy, no chemo therpay required Sent by her PCP for LE edema pt have hx of LE edema on lasix, recently her edema is not responding to lasix, I/O studies with PCP as per pt revealed I=O no chest pain, palpitation, nausea, vomiting or diarrhea BP was uncontrolled edema much improved low K , replaced UPC 0.4 SPEP, UPEP, K/l will rpt 24hrs urine studies as specimen showed low cr edema much improved , will cut lasix to daily tomorrow remove purdy tomorrow and trial of void Assessment And Plan: 1. CKD III Cr baseline 1.0-1.3 Renal diet Adjust meds as per RFT Renal US 8.2cm B/l, mild echogenic 2. LE edema serum alb on admission 3.3 TTE: LVEF >60%, mild Pul HTN UPC 0.4 F/U 24hrs urine for prot and Cr F/U SPEP, serum IEF and K/L will cont lasix bid for today edema is highly unlikely due to renal pathology as urine prot/cr was mildly elevated 3. Lt leg erythema and cellulites skin care Clindamycin edema much improved low K , replaced UPC 0.4 SPEP, UPEP, K/l will rpt 24hrs urine studies as specimen showed low cr edema much improved , will cut lasix to daily tomorrow
[2018-02-18] MEDS: ENSURE HIGH PROTEIN 237 ML CAN PO SCH ×2 (14:12→20:16)
[2018-02-18] MEDS: ACETAMINOPHEN PO SCH (20:10)
[2018-02-18] MEDS: DIPHENHYDRAMINE PO SCH (20:10)
[2018-02-18] MEDS: TEMAZEPAM 15 MG CAP PO PRN (20:24)
[2018-02-19] MEDS: CARVEDILOL 12.5 MG TAB PO SCH ×2 (05:36→17:34)
[2018-02-19] MEDS: PANTOPRAZOLE 40MG TABLET PO SCH (05:36)
[2018-02-19 05:45] LABS: Albumin 2.8 g/dL (3.4-5.0); Phosphorus 2.7 mg/dL (2.5-4.9); Potassium 3.4 mmol/L (3.5-5.1)
[2018-02-19] MEDS: HOME MED 1 EA UNK (Fluticasone/Vilanterol [Breo Ellipta 200-25 Mcg Inh] 1 PUFF) IH SCH (09:00)
[2018-02-19] MEDS: ENSURE HIGH PROTEIN 237 ML CAN PO SCH ×3 (09:00→20:28)
[2018-02-19] MEDS: HYDRALAZINE HCL 25 MG TABLET PO SCH ×2 (09:07→20:27)
[2018-02-19] MEDS: CLINDAMYCIN INJ 300 MG in NA CHLORIDE 0.9% 50 ML IV SCH ×2 (09:07→20:27)
[2018-02-19] MEDS: FUROSEMIDE 40 MG/4 ML VIAL IV SCH (09:08)
[2018-02-19] MEDS: ENOXAPARIN 30 MG/0.3 ML SQ SCH (09:08)
[2018-02-19] MEDS ORDERED: FUROSEMIDE 40 MG TABLET PO SCH ×3 (13:00→17:00)
--- NOTE | 2018-02-19 14:03 | P.PN ---
Subjective Date of Service: 02/19/18 Chief Complaint: LE edema Pt with Hx of COPD and remote Breast CA , sent by her PCP for LE edema No nausea , vomiting, chest pain, SOB , no dysuria , hematuria Today edema much improved low K , replaced UPC 0.4 SPEP, UPEP, K/l F/U repeated 24hrs urine Dc purdy lasix to PO Discharge plan can FU with nephrology as an OP 3-4wks after Dc Physical Examination - Vital Signs Temperature: 98.4 F Blood Pressure: 168/72 Pulse: 84 Respirations: 17 Pulse Ox (%): 93 - Physical Exam General: Oriented x3 HEENT: Atraumatic Neck: Supple, JVD not distended Respiratory: Clear to auscultation bilaterally Cardiovascular: No edema Integumentary: No rashes - Studies Laboratory Data (last 24 hrs) 02/19/18 04:57: Sodium 135 L, Potassium 3.4 L, BUN 13, Creatinine 1.10, Glucose 109 H, Phosphorus 2.7 Medications List Reviewed: Yes Assessment And Plan - Current Problems (Diagnosis) (1) Chronic bronchitis Onset Date: 12/20/17 Current Visit: No Status: Chronic (2) Diastolic CHF, chronic Onset Date: 12/20/17 Current Visit: No Status: Acute (3) Hypertension Current Visit: No Status: Chronic - Plan An 88_-Y/O woman with PMhx of COPD, hypertension, Leal's Bulsy, remote Hx of Breast CA S/P mastectomy, no chemo therpay required Sent by her PCP for LE edema pt have hx of LE edema on lasix, recently her edema is not responding to lasix, I/O studies with PCP as per pt revealed I=O no chest pain, palpitation, nausea, vomiting or diarrhea BP was uncontrolled edema much improved low K , replaced UPC 0.4 SPEP, UPEP, K/l F/U repeated 24hrs urine Dc purdy lasix to PO Discharge plan can FU with nephrology as an OP 3-4wks after Dc Assessment And Plan: 1. CKD III Cr baseline 1.0-1.3 Renal diet Adjust meds as per RFT Renal US 8.2cm B/l, mild echogenic 2. LE edema serum alb on admission 3.3 TTE: LVEF >60%, mild Pul HTN UPC 0.4 F/U 24hrs urine for prot and Cr F/U SPEP, serum IEF and K/L will cont lasix bid for today edema is highly unlikely due to renal pathology as urine prot/cr was mildly elevated 3. Lt leg erythema and cellulites skin care Clindamycin edema much improved low K , replaced UPC 0.4 SPEP, UPEP, K/l will rpt 24hrs urine studies as specimen showed low cr
[2018-02-19] MEDS ORDERED: POTASSIUM 25 MEQ EFFERV TAB PO ONE (14:06)
--- NOTE | 2018-02-19 14:16 | CON ---
Additional Attending Physician: Dr. Webber. Chief Complaint: Swelling of the ankles. History Of Present Illness: Ms. Robbins has been having a lot of swelling of the ankles. She was in the hospital, had diuresis, later had to come to the hospital with dehydration. Now, a renal consul t has been ordered, and there is concern that she may have a light chain disease or basically a varia nt of multiple myeloma causing low albumin and edema from that point of view. She has underlying obs tructive lung disease. Medications: Outpatient medications have been acetaminophen, multivitamin, gabapentin, Protonix, Cor eg, Breo Ellipta, and furosemide 20 mg daily. Physical Examination: General: 4 feet 10 inches, 137 pounds. Alert, oriented, not in distress. Lungs: Clear. Heart: Reveals a grade 1/6 systolic ejection type murmur. Abdomen: Soft. Extremities: No edema. There are some red spots on the legs that look like resolving cellulitis and minor trauma. Diagnostic Data: Her echocardiogram shows normal ejection fraction. Impression: The patient has edema from a low colloid oncotic pressure, very likely to be some varian t of multiple myeloma causing it, although the test to make that diagnosis are not in something is ca using her colloid oncotic pressure to be very low, result in edema. I think if the patient was on a dose of Lasix that could be adjusted, maybe she could take it just when she sees edema rather than ev salas day, that might be a way to manage the edema while the cause for is being worked up. Thank you very much for your kind referral of Ms. Robbins. I will follow her with you. REJI Voice ID: [id number] Report ID: [id number]
--- NOTE | 2018-02-19 15:11 | P.PN ---
Subjective Date of Service: 02/19/18 Chief Complaint: LE edema Patient seen and examined at bedside with RN. Chart reviewed. Case discussed with nephrology. Overall patient is doing much better than before. Review of Systems 10-point ROS is otherwise unremarkable Physical Examination - Vital Signs Temperature: 98.4 F Blood Pressure: 168/72 Pulse: 84 Respirations: 17 Pulse Ox (%): 93 - Physical Exam General: Alert, In no apparent distress HEENT: Atraumatic, PERRLA, EOMI Neck: Supple, JVD not distended Respiratory: Clear to auscultation bilaterally, Normal air movement Cardiovascular: Regular rate/rhythm, Normal S1 S2 Gastrointestinal: Normal bowel sounds, No tenderness Musculoskeletal: No tenderness Integumentary: No rashes Neurological: Normal speech, Normal tone, Normal affect Lymphatics: No axilla or inguinal lymphadenopathy - Studies Laboratory Data (last 24 hrs) 02/19/18 04:57: Sodium 135 L, Potassium 3.4 L, BUN 13, Creatinine 1.10, Glucose 109 H, Phosphorus 2.7 Medications List Reviewed: Yes Assessment And Plan - Current Problems (Diagnosis) (1) Diastolic CHF, chronic Onset Date: 12/20/17 Current Visit: No Status: Acute Plan: Acute on chronic diastolic dysfunction noted. -recent echocardiogram with ejection fraction of 60% with dilated left atrium -cardiology consulted appreciated recommendations at this -fluid overload most likely secondary to low oncotic pressure. -per Cardiology recommendations patient to get PO Lasix once she notices ankle swelling. Per nephrology recommendations switched Lasix to oral at this time. Will monitor for 24-48 hr for improvement if there is improvement will discharge patient on p.r.n. Lasix. 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 Patient does also appear to be weak and having debilitation while during hospital visit. Will consult physical therapy here in the hospital. Patient was explained about senior care facility for possibility of rehab. Has agreed will discuss with PCP once she is clinically ready to go to a senior care facility. Discharge Plan: Other Plan to discharge in: 48 Hours - Code Status/Comfort Care Code Status Assessed: Yes Critical Care: No
[2018-02-19] MEDS ORDERED: NA CHLORIDE 0.9% 250 ML ONE (20:25)
[2018-02-19] MEDS: TEMAZEPAM 15 MG CAP PO PRN (20:27)
[2018-02-19] MEDS: DIPHENHYDRAMINE PO SCH (20:28)
[2018-02-19] MEDS: ACETAMINOPHEN PO SCH (20:28)
[2018-02-20 05:50] LABS: Albumin 2.8 g/dL (3.4-5.0); Phosphorus 2.7 mg/dL (2.5-4.9); Potassium 3.7 mmol/L (3.5-5.1)
[2018-02-20] MEDS: PANTOPRAZOLE 40MG TABLET PO SCH (05:52)
[2018-02-20] MEDS: CARVEDILOL 12.5 MG TAB PO SCH ×2 (05:52→17:26)
[2018-02-20] MEDS: HOME MED 1 EA UNK (Fluticasone/Vilanterol [Breo Ellipta 200-25 Mcg Inh] 1 PUFF) IH SCH (07:56)
[2018-02-20] MEDS ORDERED: FUROSEMIDE 20 MG TABLET PO SCH (09:00)
[2018-02-20] MEDS: ENSURE HIGH PROTEIN 237 ML CAN PO SCH ×3 (09:00→21:00)
--- NOTE | 2018-02-20 09:29 | P.PN ---
Subjective Date of Service: 02/20/18 Chief Complaint: LE edema Patient seen and examined at bedside with RN. Chart reviewed. Case discussed with nephrology. Overall patient is doing much better than before. No c/o overnight. Review of Systems 10-point ROS is otherwise unremarkable Physical Examination - Vital Signs Temperature: 98.4 F Blood Pressure: 141/63 Pulse: 90 Respirations: 18 Pulse Ox (%): 94 - Physical Exam General: Alert, In no apparent distress HEENT: Atraumatic, PERRLA, EOMI Neck: Supple, JVD not distended Respiratory: Clear to auscultation bilaterally, Normal air movement Cardiovascular: Regular rate/rhythm, Normal S1 S2 Gastrointestinal: Normal bowel sounds, No tenderness Musculoskeletal: No tenderness Integumentary: No rashes Neurological: Normal speech, Normal tone, Normal affect Lymphatics: No axilla or inguinal lymphadenopathy - Studies Laboratory Data (last 24 hrs) 02/20/18 05:09: Sodium 135 L, Potassium 3.7, BUN 18, Creatinine 1.20, Glucose 120 H, Phosphorus 2.7 Microbiology Data (last 24 hrs): 02/18/18 05:20 Catheterized Urine [place] Count - Final <10,000 CFU/ML. 02/18/18 05:20 Catheterized Urine - Final Medications List Reviewed: Yes Assessment And Plan - Current Problems (Diagnosis) (1) Diastolic CHF, chronic Onset Date: 12/20/17 Current Visit: No Status: Acute Plan: Acute on chronic diastolic dysfunction noted. -recent echocardiogram with ejection fraction of 60% with dilated left atrium -cardiology consulted appreciated recommendations at this -fluid overload most likely secondary to low oncotic pressure. -per Cardiology recommendations patient to get PO Lasix once she notices ankle swelling. Per nephrology recommendations switched Lasix to oral at this time. -Will monitor for 24-48 hr for improvement if there is improvement will discharge patient on p.r.n. Lasix. 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 Patient does also appear to be weak and having debilitation while during hospital visit. Will consult physical therapy here in the hospital. Patient was explained about [facility] for possibility of rehab. Has agreed will discuss with PCP once she is clinically ready to go to a [facility] facility. Discharge Plan: Other Plan to discharge in: 48 Hours - Code Status/Comfort Care Code Status Assessed: Yes Critical Care: No
[2018-02-20] MEDS: HYDRALAZINE HCL 25 MG TABLET PO SCH ×2 (09:56→21:01)
[2018-02-20] MEDS: CLINDAMYCIN INJ 300 MG in NA CHLORIDE 0.9% 50 ML IV SCH ×2 (09:56→21:01)
[2018-02-20] MEDS: ENOXAPARIN 30 MG/0.3 ML SQ SCH (09:57)
[2018-02-20] MEDS: FUROSEMIDE 40 MG TABLET PO SCH (09:57)
[2018-02-20] MEDS ORDERED: FUROSEMIDE 20 MG TABLET PO ONE (11:04)
--- NOTE | 2018-02-20 16:05 | P.PN ---
Subjective Date of Service: 02/20/18 Chief Complaint: LE edema Pt with Hx of COPD and remote Breast CA , sent by her PCP for LE edema No nausea , vomiting, chest pain, SOB , no dysuria , hematuria Today edema much improved low K , replaced UPC 0.4 F/U SPEP, UPEP, K/l repeated 24hrs urine 100mg urinate spontaneously lasix to PO daily Discharge plan can FU with nephrology as an OP 3-4wks after Dc Physical Examination - Vital Signs Temperature: 98.3 F Blood Pressure: 134/62 Pulse: 84 Respirations: 17 Pulse Ox (%): 94 - Physical Exam General: Oriented x3 HEENT: Atraumatic Neck: Without JVD or thyroid abnormality Respiratory: Clear to auscultation bilaterally Cardiovascular: Edema (trace ) - Studies Laboratory Data (last 24 hrs) 02/20/18 05:09: Sodium 135 L, Potassium 3.7, BUN 18, Creatinine 1.20, Glucose 120 H, Phosphorus 2.7 Microbiology Data (last 24 hrs): 02/18/18 05:20 Catheterized Urine [place] Count - Final <10,000 CFU/ML. 02/18/18 05:20 Catheterized Urine - Final Medications List Reviewed: Yes Assessment And Plan - Current Problems (Diagnosis) (1) Chronic bronchitis Onset Date: 12/20/17 Current Visit: No Status: Chronic (2) Diastolic CHF, chronic Onset Date: 12/20/17 Current Visit: No Status: Acute (3) Hypertension Current Visit: No Status: Chronic - Plan An 88_-Y/O woman with PMhx of COPD, hypertension, Leal's Bulsy, remote Hx of Breast CA S/P mastectomy, no chemo therpay required Sent by her PCP for LE edema pt have hx of LE edema on lasix, recently her edema is not responding to lasix, I/O studies with PCP as per pt revealed I=O no chest pain, palpitation, nausea, vomiting or diarrhea BP was uncontrolled edema resolved K ok UPC 0.4 24hr urine 100mg SPEP, UPEP, K/l lasix to 40mg PO daily Discharge plan can FU with nephrology as an OP 3-4wks after Dc Assessment And Plan: 1. CKD III Cr baseline 1.0-1.3 Renal diet Adjust meds as per RFT Renal US 8.2cm B/l, mild echogenic 2. LE edema serum alb on admission 3.3 TTE: LVEF >60%, mild Pul HTN UPC 0.4 24 hrs prot 100mg F/U SPEP, serum IEF and K/L will cont lasix edema is highly unlikely due to renal pathology as urine prot/cr was mildly elevated 3. Lt leg erythema and cellulites skin care Clindamycin 4.Hypokalemia Resolved
--- NOTE | 2018-02-20 16:07 | PN ---
Mrs. Robbins seems to be feeling better. She does not have any edema. Her laboratory exam from toda y reveals a creatinine of 1.2, sodium is 135. 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 I think her present regimen for treating her is good. I would be in favor for being discharged most likely tomorrow when she see s Dr. Webber. HERBERTH/JENNY Voice ID: [id number] Report ID: [id number]
[2018-02-20 16:24] LABS: Urine Total Volume 24 Hours 3170 mL/24 h
[2018-02-20] MEDS: DIPHENHYDRAMINE PO SCH (21:00)
[2018-02-20] MEDS: ACETAMINOPHEN PO SCH (21:00)
[2018-02-20] MEDS: TEMAZEPAM 15 MG CAP PO PRN (21:02)
[2018-02-21 05:29] LABS: Albumin 2.7 g/dL (3.4-5.0); Phosphorus 3.6 mg/dL (2.5-4.9); Potassium 3.4 mmol/L (3.5-5.1)
[2018-02-21] MEDS: CARVEDILOL 12.5 MG TAB PO SCH ×2 (05:37→17:46)
[2018-02-21] MEDS: PANTOPRAZOLE 40MG TABLET PO SCH (05:37)
[2018-02-21] MEDS: HOME MED 1 EA UNK (Fluticasone/Vilanterol [Breo Ellipta 200-25 Mcg Inh] 1 PUFF) IH SCH (09:00)
[2018-02-21] MEDS: HYDRALAZINE HCL 25 MG TABLET PO SCH ×2 (09:03→21:14)
[2018-02-21] MEDS: ENOXAPARIN 30 MG/0.3 ML SQ SCH (09:03)
[2018-02-21] MEDS: FUROSEMIDE 40 MG TABLET PO SCH (09:04)
[2018-02-21] MEDS: CLINDAMYCIN INJ 300 MG in NA CHLORIDE 0.9% 50 ML IV SCH ×2 (09:05→21:14)
[2018-02-21] MEDS: ENSURE HIGH PROTEIN 237 ML CAN PO SCH ×3 (09:10→21:00)
[2018-02-21] MEDS ORDERED: POTASSIUM 25 MEQ EFFERV TAB PO ONE (12:39)
--- NOTE | 2018-02-21 19:27 | P.PN ---
Subjective Date of Service: 02/21/18 Chief Complaint: LE edema Pt with Hx of COPD and remote Breast CA , sent by her PCP for LE edema No nausea , vomiting, chest pain, SOB , no dysuria , hematuria Today No new complaints Ambulating UPC 0.4 F/U SPEP, IEF -ve, K/l ok Discharge plan can FU with nephrology as an OP 3-4wks after Dc Physical Examination - Vital Signs Temperature: 97.8 F Blood Pressure: 145/67 Pulse: 85 Respirations: 18 Pulse Ox (%): 95 - Physical Exam General: Oriented x3 HEENT: Atraumatic Neck: Supple Respiratory: Clear to auscultation bilaterally Cardiovascular: No edema, Normal pulses, Normal S1 S2 - Studies Laboratory Data (last 24 hrs) 02/21/18 04:29: Sodium 136, Potassium 3.4 L, BUN 19 H, Creatinine 1.20, Glucose 121 H, Phosphorus 3.6 Medications List Reviewed: Yes Assessment And Plan - Current Problems (Diagnosis) (1) Chronic bronchitis Onset Date: 12/20/17 Current Visit: No Status: Chronic (2) Diastolic CHF, chronic Onset Date: 12/20/17 Current Visit: No Status: Acute (3) Hypertension Current Visit: No Status: Chronic - Plan An 88_-Y/O woman with PMhx of COPD, hypertension, Leal's Bulsy, remote Hx of Breast CA S/P mastectomy, no chemo therpay required Sent by her PCP for LE edema pt have hx of LE edema on lasix, recently her edema is not responding to lasix, I/O studies with PCP as per pt revealed I=O no chest pain, palpitation, nausea, vomiting or diarrhea BP was uncontrolled Today No new complaints Ambulating UPC 0.4 F/U SPEP, IEF -ve, K/l ok Discharge plan can FU with nephrology as an OP 3-4wks after Dc Assessment And Plan: 1. CKD III Cr baseline 1.0-1.3 Renal diet Adjust meds as per RFT Renal US 8.2cm B/l, mild echogenic 2. LE edema serum alb on admission 3.3 TTE: LVEF >60%, mild Pul HTN UPC 0.4 24 hrs prot 100mg F/U SPEP, serum IEF and K/L ok will cont lasix edema is highly unlikely due to renal pathology as urine prot/cr was mildly elevated 3. Lt leg erythema and cellulites improved skin care Clindamycin 4.Hypokalemia Resolved
[2018-02-21] MEDS: DIPHENHYDRAMINE PO SCH (21:00)
[2018-02-21] MEDS: ACETAMINOPHEN PO SCH (21:00)
[2018-02-21] MEDS: TEMAZEPAM 15 MG CAP PO PRN (21:14)
[2018-02-22] MEDS: CARVEDILOL 12.5 MG TAB PO SCH (05:24)
[2018-02-22] MEDS: PANTOPRAZOLE 40MG TABLET PO SCH (05:36)
[2018-02-22] MEDS: CLINDAMYCIN INJ 300 MG in NA CHLORIDE 0.9% 50 ML IV SCH (09:00)
[2018-02-22] MEDS: HYDRALAZINE HCL 25 MG TABLET PO SCH (09:00)
[2018-02-22] MEDS: ENSURE HIGH PROTEIN 237 ML CAN PO SCH (09:00)
[2018-02-22] MEDS: HOME MED 1 EA UNK (Fluticasone/Vilanterol [Breo Ellipta 200-25 Mcg Inh] 1 PUFF) IH SCH (09:00)
[2018-02-22] MEDS: ENOXAPARIN 30 MG/0.3 ML SQ SCH (10:25)
[2018-02-22] MEDS: FUROSEMIDE 40 MG TABLET PO SCH (10:26)
--- NOTE | 2018-02-22 10:37 | PN ---
Date of Progress Note: 02/21/2018 The patient states she feels much better than yesterday, although there has been no significant godwin e in her medication. Her activity level has improved. Her appetite has improved somewhat. Her leg continues to look well as far as the cellulitis and edema are concerned, and I do not think that at t his stage the patient needs SNF. We will observe her overnight and if there is no change, she could be discharged back to her assisted living area. HR/MODL Voice ID: [id number] Report ID: [id number]
--- NOTE | 2018-02-22 10:58 | PN ---
Date of Progress Note: 02/22/2018 The patient is status quo. She is alert and functional, and I think, she can be discharged back to h er living situation without a problem. The only difference I have made in her medication is I have c hanged the Lasix to alternating 20 and 40. She is to go back on her original dose of Coreg and Apres oline, weigh herself daily and then I will see her next week. I think, the combination of some decre ased function in her pulmonary status combined with renal dysfunction and change of her medication wi th holding off on her Lasix for 3 or 4 days cumulatively led to her present clinical condition, but a ctually, she has done quite well over the past few days and will be discharged in good condition. HR/MODL Voice ID: [id number] Report ID: [id number]
[2018-02-22 14:04] VITALS: O2SAT 95
[2018-02-22 14:06] VITALS: BP 142/64; TEMP 97.4
[2018-02-22 14:22] VITALS: BMI 28.6
[2018-02-22 19:22] LABS: Albumin, (SPE) 3.4 g/dL (3.8-4.8); Alpha-1-Globulins 0.4 g/dL (0.2-0.3); Alpha-2-Globulins 0.7 g/dL (0.5-0.9); Gamma Globulins 0.5 g/dL (0.8-1.7); INTERPRETATION REPORT
--- NOTE | 2018-02-23 11:40 | PN ---
Date of Progress Note: 02/22/2018 Ms. Robbins has been in the hospital since 02/16/2018. Came in with severe edema in the lower extrem ity probably secondary to low lymphatic pressure secondary to albumin and globulin problem secondary to multiple myeloma. She is getting Lasix on an as-needed basis. Workup for renal failure, edema, e levated creatinine, and decreased albumin, light chain disease is pending. She is feeling much osman r today and wants to go home. She is awaiting Dr. Echeverria's decision. I agree with the plan to disch arge her. We will see her in the office on an as-needed basis. RYANNE/JENNY Voice ID: [id number] Report ID: [id number]
[2018-03-22 12:37] LABS: Urine Total Volume 24 Hours 2125 mL/24 h
--- NOTE | 2018-03-28 01:41 | DS ---
Date of Discharge: 02/22/2018 Hospital Course: The patient was admitted to the hospital on 02/16 for treatment of cellulitis and m arked edema of her lower extremities. Due to some renal insufficiency, patient has been off her Lasi x for a couple days. She has used this on a p.r.n. basis for both edema and hypertension in the past . When she was admitted, she was placed on IV Lasix and IV antibiotics. She did have a slightly fabián vated creatinine presumably controlled by nutritional and fluid intake. However, she said the latter has been decreased significantly over the past few days as she has not felt hungry. Her albumin was borderline. Her creatinine was elevated to the 1.7 range maximum. Once she was hydrated and judici ous use of her diuretics and the medication, had dropped to less than 1. However, her baseline is us ually 1.3 to 1.5. She was seen by Nephrology during hospital stay as well as oil separator. Does hav e an element of CHF. Hypertension has been rather difficult to control as of late, although in the h ospital had seen to stabilize. She also developed some hypokalemia. This was corrected. On the abo ve-outlined regimen, she showed slow but gradual improvement. Her appetite improved. Her chemistrie s improved and edema had markedly improved at the time of discharge on 02/22. To follow up with pablo ramirez and Nephrology. Final Diagnoses: Cellulitis of the legs, peripheral edema, hypertension poor control, renal insuffic iency, mild congestive heart failure diastolic, hypokalemia mild. HR/MODL Voice ID: [id number] Report ID: [id number]
== END 2018-02-22 12:00 | disposition home or self-care (01) ==
LOC: 2ND 11:18
PROVIDERS: ADMIT Family Medicine; ATTEND Family Medicine
DX: L03.116 Cellulitis of left lower limb (principal); I13.0 Hypertensive heart and chronic kidney disease with heart failure and stage 1 through stage 4 chronic kidney disease, or unspecified chronic kidney disease; N18.4 Chronic kidney disease, stage 4 (severe); I50.33 Acute on chronic diastolic (congestive) heart failure; J44.9 Chronic obstructive pulmonary disease, unspecified; E87.6 Hypokalemia; Z88.0 Allergy status to penicillin; Z88.2 Allergy status to sulfonamides; Z85.3 Personal history of malignant neoplasm of breast
CPT/HCPCS: 36415 ×5; 71045; 76770; 80069 ×5; 80076; 81003; 82550; 82570 ×3; 83883 ×4; 83970; 84156 ×3; 84165; 84443; 84550; 85025 ×2; 85610; 85730; 86334; 86335; 87086; 93005; 93306; 93923; 93970; 97116 ×2; 97163; 97530 ×2; G0378; G0379; J1650 ×6; P9047 ×2; 81015; 87088

== ENCOUNTER 2019-01-03 22:18 | Emergency (ER) | payer OTHER ==
--- NOTE | 2019-01-03 23:57 | ER ---
Nurse's Notes [facility] Name: Jenn Robbins Age: 88 yrs Sex: Female : 1930 Arrival Date: 01/03/2019 Time: 22:19 Bed 20 Private MD: Diagnosis: Contusion of right lower leg;Contusion of left lower leg Presentation: 01/03 22:34 Presenting complaint: Patient states: "I had both my lower legs injured last Wednesday cc3 and I was seen in [place] wherein they did stitch the lacerated wound on my right lower leg and drained the hematoma on my left lower leg. Today I noticed that the redness of both of my lower legs are spreading upwards. I was started on antibiotics since Wednesday". Transition of care: patient was not received from another setting of care. Onset of symptoms was December 31, 2018. Risk Assessment: Do you want to hurt yourself or someone else? Patient reports no desire to harm self or others. Initial Sepsis Screen: Does the patient meet any 2 criteria? No. Patient's initial sepsis screen is negative. Does the patient have a suspected source of infection? Yes: Skin breakdown/wound. Care prior to arrival: None. 22:34 Method Of Arrival: Wheelchair cc3 22:34 Acuity: MAURA 3 cc3 Triage Assessment: 22:34 General: Appears in no apparent distress. comfortable, Behavior is calm, cooperative, cc3 appropriate for age. Pain: Complains of pain in bilateral lower legs. EENT: No signs and/or symptoms were reported regarding the EENT system. Neuro: Level of Consciousness is awake, alert, obeys commands, Oriented to person, place, time, situation, Appropriate for age. Cardiovascular: Denies chest pain, Capillary refill < 3 seconds Patient's skin is warm and dry. Respiratory: Airway is patent Respiratory effort is even, unlabored, Respiratory pattern is regular, symmetrical. GI: Abdomen is round non-distended. : No signs and/or symptoms were reported regarding the genitourinary system. Derm: Skin is fragile, is thin, Wound noted sutured wound on her right lower leg, punctured wounds on her left lower leg Bruising that is bright red, dark purple, on bilateral lower legs. Musculoskeletal: Circulation, motion, and sensation intact. Range of motion: intact in all extremities. Historical: - Allergies: 22:34 Adhesives; cc3 22:34 Ampicillin; cc3 22:34 Nitrofurantoin; cc3 22:34 Sulfa (Sulfonamide Antibiotics); cc3 22:34 Levaquin; cc3 - Home Meds: 22:34 Breo Ellipta inhalation [Active]; Coreg 25 mg Oral tab 1 tab 2 times per day [Active]; cc3 furosemide 20 mg Oral tab 1 tab once daily [Active]; gabapentin 100 mg Oral cap twice a day [Active]; hydroxyzine HCl 25 mg Oral tab [Active]; multivitamin Oral cap daily [Active]; pantoprazole 40 mg Oral TbEC 1 tab once daily [Active]; spironolactone 25 mg Oral tab 1 tab once daily [Active]; Tylenol PM Extra Strength 25-500 mg Oral tab once daily [Active]; - PMHx: 22:34 Arthritis; bells palsy; CHF; COPD; Diverticulitis; Hypertension; Osteoporosis; cc3 - PSHx: 22:34 Tonsillectomy; Appendectomy; stapedectomy (right ear); Hysterectomy; Cholecystectomy; cc3 modified radical right mastectomy; - Immunization history:: Adult Immunizations up to date, Last tetanus immunization: received last Wednesday. - Social history:: Smoking status: Patient/guardian denies using tobacco, but has a distant history of tobacco abuse. - Ebola Screening: : No symptoms or risks identified at this time. Screenin:34 Abuse screen: Denies threats or abuse. Denies injuries from another. Nutritional cc3 screening: No deficits noted. Tuberculosis screening: No symptoms or risk factors identified. Fall Risk Ambulatory Aid- None/Bed Rest/Nurse Assist (0 pts). Gait- Normal/Bed Rest/Wheelchair (0 pts) Mental Status- Oriented to own ability (0 pts). Assessment: 22:34 General: see triage assessment. cc3 23:18 Reassessment: Patient appears in no apparent distress at this time. Patient and/or cc3 family updated on plan of care and expected duration. Pain level reassessed. Patient is alert, oriented x 3, equal unlabored respirations, skin warm/dry/pink. Dr. Cosme at bedside. 01/04 00:10 Reassessment: Patient appears in no apparent distress at this time. Patient and/or cc3 family updated on plan of care and expected duration. Pain level reassessed. Patient is alert, oriented x 3, equal unlabored respirations, skin warm/dry/pink. Wound cleaning and dressing done, neosporin applied as ordered. Dr. Cosme discharged the patient home, no prescription given. No IV cannula in situ. Patient left ER vitally stable and ambulatory with her daughter. No valuables left in the patient's room. Patient refused wheelchair. Patient's daughter said she'll bring her mother back to [facility]. Patient denies pain at this time. Patient states feeling better. Patient states symptoms have improved. Vital Signs: 01/03 22:34 BP 152 / 56; Pulse 62; Resp 18 S; Temp 97.2(TE); Pulse Ox 99% on R/A; Weight 64.41 kg cc3 (R); Height 4 ft. 10 in. (147.32 cm) (R); 23:50 BP 148 / 55; Pulse 63; Resp 17 S; Pulse Ox 99% on R/A; cc3 22:34 Body Mass Index 29.68 (64.41 kg, 147.32 cm) cc3 ED Course: 22:19 Patient arrived in ED. ds1 22:34 Kristine Gordon is Primary Nurse. cc3 22:34 Patient has correct armband on for positive identification. Placed in gown. Bed in low cc3 position. Call light in reach. Side rails up X 1. Pulse ox on. NIBP on. 22:34 Arm band placed on right wrist. Patient notified of wait time. cc3 22:47 Jason Cosme MD is Attending Physician. 23:04 Triage completed. cc3 01/04 00:10 Patient did not have IV access during this emergency room visit. cc3 00:10 wound cleaning and dressing with neosporin done. cc3 Administered Medications: No medications were administered Outcome: 01/03 23:55 Discharge ordered by . 01/04 00:10 Discharged to home ambulatory, with family. cc3 Condition: stable Discharge instructions given to patient, family, Instructed on discharge instructions, follow up and referral plans. Demonstrated understanding of instructions, follow-up care. 00:16 Patient left the ED. cc3 Signatures: Emelina Verdugo ds1 Jason Cosme MD MD Kristine Gordon cc3 Corrections: (The following items were deleted from the chart) 00:34 00:10 Reassessment: Patient appears in no apparent distress at this time. Patient cc3 and/or family updated on plan of care and expected duration. Pain level reassessed. Patient is alert, oriented x 3, equal unlabored respirations, skin warm/dry/pink. Wound cleaning and dressing done, neosporin applied as ordered. Dr. Cosme discharged the patient home, no prescription given. No IV cannula in situ. Patient left ER vitally stable and ambulatory with her daughter. No valuables left in the patient's room. Patient refused wheelchair. Patient denies pain at this time. Patient states feeling better. Patient states symptoms have improved. cc3 00:39 00:10 No provider procedures requiring assistance completed. cc3 cc3
--- NOTE | 2019-01-03 23:57 | EDPHYS ---
Physician Documentation [facility] Name: Jenn Robbins Age: 88 yrs Sex: Female : 1930 Arrival Date: 01/03/2019 Time: 22:19 Bed 20 Private MD: ED Physician Jason Cosme HPI: 01/03 23:47 This 88 yrs old Female presents to ER via Wheelchair with complaints of Leg gs Pain. 23:47 The patient presents with a contusion, BRUISING SPREADING ON LEGS, NEAR FALL LACERATION gs WEDNESDAY TO RIGHT LEG HEMATOMA TO LEFT LEG. NO SEVERE PAIN. Historical: - Allergies: 22:34 Adhesives; cc3 22:34 Ampicillin; cc3 22:34 Nitrofurantoin; cc3 22:34 Sulfa (Sulfonamide Antibiotics); cc3 22:34 Levaquin; cc3 - Home Meds: 22:34 Breo Ellipta inhalation [Active]; Coreg 25 mg Oral tab 1 tab 2 times per day [Active]; cc3 furosemide 20 mg Oral tab 1 tab once daily [Active]; gabapentin 100 mg Oral cap twice a day [Active]; hydroxyzine HCl 25 mg Oral tab [Active]; multivitamin Oral cap daily [Active]; pantoprazole 40 mg Oral TbEC 1 tab once daily [Active]; spironolactone 25 mg Oral tab 1 tab once daily [Active]; Tylenol PM Extra Strength 25-500 mg Oral tab once daily [Active]; - PMHx: 22:34 Arthritis; bells palsy; CHF; COPD; Diverticulitis; Hypertension; Osteoporosis; cc3 - PSHx: 22:34 Tonsillectomy; Appendectomy; stapedectomy (right ear); Hysterectomy; Cholecystectomy; cc3 modified radical right mastectomy; - Immunization history:: Adult Immunizations up to date, Last tetanus immunization: received last Wednesday. - Social history:: Smoking status: Patient/guardian denies using tobacco, but has a distant history of tobacco abuse. - Ebola Screening: : No symptoms or risks identified at this time. ROS: 23:47 Constitutional: Negative for fever. gs 23:47 Skin: Negative for cellulitis. 23:47 All other systems are negative. Exam: 23:47 ENT: Nares patent. No nasal discharge, no septal abnormalities noted. Tympanic gs membranes are normal and external auditory canals are clear. Oropharynx with no redness, swelling, or masses, exudates, or evidence of obstruction, uvula midline. Mucous membranes moist. Neck: Trachea midline, no thyromegaly or masses palpated, and no cervical lymphadenopathy. Supple, full range of motion without nuchal rigidity, or vertebral point tenderness. No Meningismus. Neuro: Awake and alert, GCS 15, oriented to person, place, time, and situation. Cranial nerves II-XII grossly intact. Motor strength 5/5 in all extremities. Sensory grossly intact. Cerebellar exam normal. Normal gait. 23:47 Constitutional: The patient appears alert, awake. 23:47 Musculoskeletal/extremity: Extremities: ecchymosis, laceration, WOUNDS HEALING MILD TENDERNESS NO HYPEREMIA NO CELLULITIS LOOKS LIKE PROGRESSION OF HEMATOMA, PT NOT ON BLOOD THINNERS WILL CLEAN WOUNDS REDRESS AND DISCHARGE PT GIVEN INSTRUCTIONS, Perfusion: the patient is normally perfused throughout. Vital Signs: 22:34 BP 152 / 56; Pulse 62; Resp 18 S; Temp 97.2(TE); Pulse Ox 99% on R/A; Weight 64.41 kg cc3 (R); Height 4 ft. 10 in. (147.32 cm) (R); 23:50 BP 148 / 55; Pulse 63; Resp 17 S; Pulse Ox 99% on R/A; cc3 22:34 Body Mass Index 29.68 (64.41 kg, 147.32 cm) cc3 MDM: 22:57 Patient medically screened. gs 23:47 Differential diagnosis: contusion. Data reviewed: vital signs, nurses notes. gs Counseling: I had a detailed discussion with the patient and/or guardian regarding: the historical points, exam findings, and any diagnostic results supporting the discharge/admit diagnosis, the need for outpatient follow up. 01/04 00:15 Order name: Wound Care; Complete Time: 00:15 cc3 01/04 00:15 Order name: Wound dressing; Complete Time: 00:15 cc3 Administered Medications: No medications were administered Disposition: 01/03/19 23:55 Discharged to Home. Impression: Contusion of right lower leg, Contusion of left lower leg. - Condition is Stable. - Discharge Instructions: Contusion. - Medication Reconciliation Form, Thank You Letter, Antibiotic Education, Prescription Opioid Use form. - Follow up: Private Physician; When: 2 - 3 days; Reason: Re-evaluation by your physician. Signatures: Jason Cosme MD MD Kristine Gordon cc3 Corrections: (The following items were deleted from the chart) 01/04 00:16 01/03 23:55 01/03/2019 23:55 Discharged to Home. Impression: Contusion of right lower cc3 leg; Contusion of left lower leg. Condition is Stable. Forms are Medication Reconciliation Form, Thank You Letter, Antibiotic Education, Prescription Opioid Use. Follow up: Private Physician; When: 2 - 3 days; Reason: Re-evaluation by your physician. gs
[2019-01-04 04:16] VITALS: BP 152/56; TEMP 97.2; O2SAT 99
== END 2019-01-04 00:16 | disposition home or self-care (01) ==
LOC: ER 22:18
DX: S80.12XA Contusion of left lower leg, initial encounter (principal); S80.11XA Contusion of right lower leg, initial encounter; I10 Essential (primary) hypertension; J44.9 Chronic obstructive pulmonary disease, unspecified; I50.9 Heart failure, unspecified; W19.XXXA Unspecified fall, initial encounter; Z88.0 Allergy status to penicillin; Z88.1 Allergy status to other antibiotic agents; Z88.2 Allergy status to sulfonamides; Z88.8 Allergy status to other drugs, medicaments and biological substances
CPT/HCPCS: 99283

== ENCOUNTER 2019-01-16 17:05 | Observation (INO) | payer OTHER ==
[2019-01-16] MEDS ORDERED: ONDANSETRON 4 MG/2 ML VIAL IV PRN (17:37)
[2019-01-16] MEDS ORDERED: FUROSEMIDE 40 MG/4 ML VIAL IV SCH (17:45)
[2019-01-16 18:08] LABS: Absolute Lymphocytes (CBC) 2.1 K/uL (0.7-4.9); Basophils % 1.7 % (0-1.3); Hematocrit 34.6 % (36.0-45.0); MPV 8.7 fL (7.6-11.3)
--- NOTE | 2019-01-16 18:24 | RAD REPORT ---
EXAM DESCRIPTION: RAD - Chest Pa And Lat (2 Views) - 01/16/2019 6:10 pm CLINICAL HISTORY: chf COMPARISON: May 26 TECHNIQUE: PA and lateral views of the chest were obtained. FINDINGS: The lungs are fibrotic in a pattern similar to comparison. Degree of lung base fibrosis c ould mask acute edema or infiltrate. No peripheral consolidation or mass. Heart size is normal and ce ntral vasculature is within normal limits. No pleural effusion or pneumothorax seen. Osteopenic and degenerative bony changes are present. Multiple compression fractures are present. Findings in the pine are not substantially different from comparison. No aortic abnormality. IMPRESSION: Fibrotic lung pattern similar to comparison. No significant failure or volume overload evident.
[2019-01-16] MEDS: CLINDAMYCIN INJ 900 MG in NA CHLORIDE 0.9% 50 ML IV SCH (18:50)
[2019-01-16 19:21] LABS: Urine Appearance CLEAR; Urine Bilirubin NEGATIVE (NEG); Urine Blood NEGATIVE (NEG); Urine Color YELLOW; Urine Glucose NEGATIVE (NEG); Urine Protein NEGATIVE (NEG); Urine Specific Gravity 1.015 (1.005-1.030); Urine Urobilinogen 0.2 mg/dL (0.2-1.0)
[2019-01-16 19:33] LABS: Potassium 4.5 mmol/L (3.5-5.1)
[2019-01-16 19:38] LABS: Urine Microscopic Reflex ORDER UMIC
[2019-01-16 19:53] LABS: Urine Bacteria 20-50 /HPF (<20); Urine Culture Reflex Order NOT NEEDED; Urine RBC <5 /HPF (NONE SEEN)
[2019-01-16] MEDS: HYDRALAZINE HCL 25 MG TABLET PO SCH (23:42)
[2019-01-16] MEDS: CARVEDILOL 25 MG TAB PO SCH (23:43)
[2019-01-17 05:56] LABS: Absolute Lymphocytes (CBC) 1.7 K/uL (0.7-4.9); Basophils % 1.5 % (0-1.3); Hematocrit 31.1 % (36.0-45.0); Lymphocytes % 17.7 % (15.3-44.8); MPV 8.1 fL (7.6-11.3); RBC Red Blood Cell Count 3.66 M/uL (3.86-4.86)
[2019-01-17] MEDS: CARVEDILOL 25 MG TAB PO SCH ×2 (05:57→17:29)
[2019-01-17 07:09] LABS: Potassium 3.9 mmol/L (3.5-5.1)
[2019-01-17] MEDS: HYDRALAZINE HCL 25 MG TABLET PO SCH ×3 (09:01→21:19)
[2019-01-17] MEDS: FUROSEMIDE 40 MG/4 ML VIAL IV SCH (09:02)
[2019-01-17] MEDS: CLINDAMYCIN INJ 900 MG in NA CHLORIDE 0.9% 50 ML IV SCH ×3 (10:58→21:17)
[2019-01-17] MEDS: MUPIROCIN 2% OINT 22GM TUBE TOP SCH (14:02)
[2019-01-17] MEDS ORDERED: TEMAZEPAM 15 MG CAP PO SCH (21:00)
[2019-01-17] MEDS ORDERED: DIPHENHYDRAMINE PO SCH (21:00)
[2019-01-17] MEDS ORDERED: HYDRALAZINE HCL 25 MG TABLET PO SCH (21:00)
[2019-01-17] MEDS ORDERED: CARVEDILOL 25 MG TAB PO SCH (21:00)
[2019-01-17] MEDS ORDERED: ACETAMINOPHEN PO SCH (21:00)
[2019-01-17] MEDS: GABAPENTIN 100 MG CAP PO SCH (21:17)
[2019-01-17] MEDS: DIPHENHYDRAMINE 25 MG TAB/CAP PO SCH (21:17)
[2019-01-17] MEDS: ACETAMINOPHEN 500 MG TAB PO SCH ×2 (21:17→21:18)
[2019-01-18] MEDS: CARVEDILOL 25 MG TAB PO SCH ×2 (05:45→16:37)
[2019-01-18 08:33] VITALS: O2SAT 100
[2019-01-18] MEDS: GABAPENTIN 100 MG CAP PO SCH (08:33)
[2019-01-18] MEDS: HYDRALAZINE HCL 25 MG TABLET PO SCH (08:34)
[2019-01-18] MEDS: FUROSEMIDE 40 MG/4 ML VIAL IV SCH (08:34)
[2019-01-18] MEDS: MUPIROCIN 2% OINT 22GM TUBE TOP SCH (08:35)
[2019-01-18] MEDS ORDERED: PANTOPRAZOLE 40MG TABLET PO SCH (09:00)
[2019-01-18] MEDS ORDERED: HOME MED 1 EA UNK (Fluticasone/Vilanterol [Breo Ellipta 100-25 Mcg Inh] 1 EACH) IH SCH (09:00)
[2019-01-18] MEDS ORDERED: SPIRONOLACTONE 25 MG TABLET PO SCH (09:00)
[2019-01-18] MEDS ORDERED: MULTIVITAMIN TAB PO SCH (09:00)
[2019-01-18] MEDS: CLINDAMYCIN INJ 900 MG in NA CHLORIDE 0.9% 50 ML IV SCH (09:12)
[2019-01-18 14:57] VITALS: BMI 28.8
[2019-01-18] MEDS ORDERED: LIDOCAINE VISCOUS 2% SOLN 15 ML UDC TOP ONE (15:00)
[2019-01-18 16:25] VITALS: TEMP 97.5
[2019-01-18 16:37] VITALS: BP 156/69
--- NOTE | 2019-01-19 00:08 | PN ---
Date of Progress Note: 01/17/2019 Patient's leg is much better today. There is decreased edema considerably on the right, somewhat les s on the left, however, the areas of cellulitis are markedly improved. Catheter was inserted so she would not have to be going to the bathroom all the time with the IV Lasix and patient has had a fair amount of diuresis and probably be able to be discharged in the a.m. to continue with oral antibiotic s as she continues on this course. HR/MODL Voice ID: [id number] Report ID: [id number]
--- NOTE | 2019-01-19 00:10 | PN ---
Date of Progress Note: 01/18/2019 Patient continues to improve. Both left and right leg edema has basically gone. The erythema is muc h improved as well. The small amount of tissue very superficial was removed from the ecchymotic cont usion area on the left. She was discharged on clindamycin orally and Bactroban to follow up with me in 48 hours. Wound Healing was also consulted. She is can be placed back on her home health as well . HR/MODL Voice ID: [id number] Report ID: [id number]
--- NOTE | 2019-01-19 00:11 | PN ---
Entrance Complaint: Painful legs. History Of Present Illness: Patient had some trauma to her lower extremities when stepping down from an SUV about 2 weeks ago. She was seen in the emergency room, suture of laceration on her right low er leg was accomplished. She had an abrasion and contusion of her left lower leg. She was placed on antibiotics, was seen in the office a few days later, seemed to be under good control. Home Health was also involved. However, when seen on the day of admission, there was marked erythema, tenderness , and edema, especially on the right and patient states she has not felt like that before with a weig ht increase, fluid retention, and mild CHF. Past History: As above. Considering her age, patient has been in good health. There have been some pre renal problems with diuresis as well. Social History: Nonsmoker, nondrinker. Family History: Noncontributory. Physical Examination: General: Patient is an elderly female, oriented. Vital Signs: Stable. Head and Neck: Normocephalic. Pupils equal and reactive to light and accommodation. Fundi negative . Trachea midline. Thyroid not palpable. ENT: Negative. Chest: Occasional rales at both bases and occasional high-pitched rhonchi as well. Cardiovascular: PMI midclavicular line. Heart: Sounds normal. Peripheral pulses present and equal bilaterally. Abdomen: No organomegaly. Bowel sounds present. Extremities: Upper extremities normal. Lower extremity showed marked area of cellulitis surrounding it and laceration of the right lower leg. Marked edema on the right foot. The left lower leg shows an abrasion and contusion with some skin changes noted. Rectal and Pelvic: Deferred. Impression: Cellulitis of the legs bilaterally, congestive heart failure. Plan: Patient will be admitted and placed on IV antibiotics, IV Lasix depending on the degree of diu resis and the improvement in the cellulitis. Patient should be hospitalized for 1-2 days. HR/MODL Voice ID: [id number] Report ID: [id number]
== END 2019-01-18 16:30 | disposition home health service (06) ==
LOC: 4TH 17:05
PROVIDERS: ADMIT Family Medicine; ATTEND Family Medicine
DX: L03.116 Cellulitis of left lower limb (principal); L03.115 Cellulitis of right lower limb; I50.9 Heart failure, unspecified
CPT/HCPCS: 87088; 87070; 85025 ×2; 87086; 80048 ×2; 36415; 87205; 71046; 99251; G0379; J1940 ×3; G0378 ×3; 81003; 81015

== ENCOUNTER 2019-04-07 20:06 | Observation (INO) | payer OTHER ==
[2019-04-07 22:43] LABS: Urine Blood NEGATIVE (NEG); Urine Glucose NEGATIVE (NEG); Urine Protein NEGATIVE (NEG); Urine pH 5.5 (5.0-7.0)
[2019-04-07] MEDS ORDERED: LEVALBUTEROL 1.25 MG/3 ML NEB ONE (23:48)
--- NOTE | 2019-04-07 23:55 | RAD REPORT ---
EXAM DESCRIPTION: Hao Single View04/07/2019 11:48 pm CLINICAL HISTORY: cough COMPARISON: 01/2019 FINDINGS: The lungs appear clear of acute infiltrate. The heart is mildly enlarged IMPRESSION: No acute abnormalities displayed
[2019-04-08 00:18] LABS: Absolute Lymphocytes (CBC) 0.9 K/uL (0.7-4.9); Hematocrit 36.5 % (36.0-45.0); MPV 8.4 fL (7.6-11.3); RBC Red Blood Cell Count 4.23 M/uL (3.86-4.86)
[2019-04-08 00:19] LABS: Protime INR 1.04
[2019-04-08 01:01] LABS: ALT/SGPT 18 U/L (12-78); AST/SGOT 15 U/L (15-37); Albumin 3.7 g/dL (3.4-5.0); Alkaline Phosphatase 64 U/L (45-117); BUN Blood Urea Nitrogen 30 mg/dL (7-18); Bicarbonate 31 mmol/L (21-32); Bilirubin Direct 0.2 mg/dL (0-0.2); Bilirubin Total 0.5 mg/dL (0.2-1.0); Glucose Level 116 mg/dL (74-106); Magnesium 2.5 mg/dL (1.8-2.4); NT PRO-BNP 667 pg/mL (<450); Potassium 4.4 mmol/L (3.5-5.1); Protein, Total 7.9 g/dL (6.4-8.2); Sodium Level 133 mmol/L (136-145); Troponin (Emerg Dept Use Only) < 0.02 ng/mL (0.0-0.045)
--- NOTE | 2019-04-08 01:23 | ER ---
Nurse's Notes [facility] Name: Jenn Robbins Age: 89 yrs Sex: Female : 1930 Arrival Date: 04/07/2019 Time: 20:14 Bed 14 Private MD: Diagnosis: Chronic obstructive pulmonary disease with (acute) exacerbation;Dehydration Presentation: 04/07 21:10 Presenting complaint: Patient states: "I was having chills with a fever that started jd3 today and it got up to 102.". Transition of care: patient was not received from another setting of care. Onset of symptoms was April 07, 2019. Risk Assessment: Do you want to hurt yourself or someone else? Patient reports no desire to harm self or others. Initial Sepsis Screen: Does the patient meet any 2 criteria? No. Patient's initial sepsis screen is negative. Does the patient have a suspected source of infection? No. Patient's initial sepsis screen is negative. Care prior to arrival: None. 21:10 Method Of Arrival: Wheelchair jd3 21:10 Acuity: MAURA 3 jd3 Historical: - Allergies: 21:13 Ampicillin; jd3 21:13 Levaquin; jd3 21:13 Nitrofurantoin; jd3 21:13 Sulfa (Sulfonamide Antibiotics); jd3 21:13 Adhesives; jd3 - Home Meds: 21:13 Breo Ellipta inhalation [Active]; Coreg 25 mg Oral tab 1 tab 2 times per day [Active]; jd3 furosemide 20 mg Oral tab 1 tab once daily [Active]; gabapentin 100 mg Oral cap twice a day [Active]; hydroxyzine HCl 25 mg Oral tab [Active]; multivitamin Oral cap daily [Active]; pantoprazole 40 mg Oral TbEC 1 tab once daily [Active]; spironolactone 25 mg Oral tab 1 tab once daily [Active]; Tylenol PM Extra Strength 25-500 mg Oral tab once daily [Active]; - PMHx: 21:13 COPD; Hypertension; Diverticulitis; Osteoporosis; CHF; Arthritis; bells palsy; jd3 - PSHx: 21:13 Appendectomy; Tonsillectomy; Hysterectomy; Cholecystectomy; modified radical right jd3 mastectomy; stapedectomy (right ear); - Immunization history:: Adult Immunizations up to date. - Social history:: Smoking status: Patient/guardian denies using tobacco, but has a distant history of tobacco abuse. - Ebola Screening: : Patient negative for fever greater than or equal to 101.5 degrees Fahrenheit, and additional compatible Ebola Virus Disease symptoms. Screenin:15 Abuse screen: Denies threats or abuse. Denies injuries from another. Nutritional aj1 screening: No deficits noted. Tuberculosis screening: No symptoms or risk factors identified. 04/08 04:27 Fall Risk None identified. aj1 Assessment: 04/07 23:15 General: Appears in no apparent distress. comfortable, Behavior is calm, cooperative, aj1 appropriate for age. Pain: Denies pain. Neuro: Level of Consciousness is awake, alert, obeys commands, Oriented to person, place, time, situation. Cardiovascular: Heart tones S1 S2 present Patient's skin is warm and dry. Rhythm is sinus rhythm. Respiratory: Reports shortness of breath on exertion cough that is hacking, persistent Airway is patent Respiratory effort is even, unlabored, Respiratory pattern is regular, symmetrical, Breath sounds with wheezes bilaterally. GI: No signs and/or symptoms were reported involving the gastrointestinal system. : No signs and/or symptoms were reported regarding the genitourinary system. EENT: No signs and/or symptoms were reported regarding the EENT system. Derm: No signs and/or symptoms reported regarding the dermatologic system. Skin is pink, warm \\T\\ dry. normal. Musculoskeletal: No signs and/or symptoms reported regarding the musculoskeletal system. Circulation, motion, and sensation intact. 04/08 00:15 Reassessment: Patient appears in no apparent distress at this time. No changes from aj1 previously documented assessment. Patient and/or family updated on plan of care and expected duration. Pain level reassessed. Patient is alert, oriented x 3, equal unlabored respirations, skin warm/dry/pink. 01:15 Reassessment: Patient appears in no apparent distress at this time. No changes from aj1 previously documented assessment. Patient and/or family updated on plan of care and expected duration. Pain level reassessed. Patient is alert, oriented x 3, equal unlabored respirations, skin warm/dry/pink. 02:15 Reassessment: Patient appears in no apparent distress at this time. No changes from aj1 previously documented assessment. Patient and/or family updated on plan of care and expected duration. Pain level reassessed. Patient is alert, oriented x 3, equal unlabored respirations, skin warm/dry/pink. 03:15 Reassessment: Patient appears in no apparent distress at this time. No changes from 1 previously documented assessment. Patient and/or family updated on plan of care and expected duration. Pain level reassessed. Patient is alert, oriented x 3, equal unlabored respirations, skin warm/dry/pink. 04:15 Reassessment: Patient appears in no apparent distress at this time. No changes from aj1 previously documented assessment. Patient and/or family updated on plan of care and expected duration. Pain level reassessed. Patient is alert, oriented x 3, equal unlabored respirations, skin warm/dry/pink. Vital Signs: 04/07 21:13 BP 121 / 61; Pulse 77; Resp 18 S; Temp 99.1(O); Pulse Ox 97% on R/A; Weight 64.41 kg jd3 (R); Height 4 ft. 11 in. (149.86 cm) (R); Pain 2/10; 23:45 BP 144 / 67; Pulse 79; Resp 20; Pulse Ox 96% on R/A; aj1 04/08 00:37 BP 156 / 69; Pulse 85; Resp 18; Pulse Ox 95% on R/A; aj1 01:35 BP 142 / 71; Pulse 81; Resp 16; Pulse Ox 96% on R/A; aj1 02:30 BP 149 / 63; Pulse 76; Resp 18; Pulse Ox 95% on R/A; aj1 03:30 BP 140 / 65; Pulse 75; Resp 18; Pulse Ox 94% on R/A; aj1 04:00 BP 139 / 61; Pulse 72; Resp 20; Temp 98.3; Pulse Ox 95% on R/A; aj1 04/07 21:13 Body Mass Index 28.68 (64.41 kg, 149.86 cm) [facility]: 04/07 20:14 Patient arrived in ED. ds1 21:11 Triage completed. jd3 21:14 Arm band placed on. j 23:10 Jovani Flowers PA is PHCP. [facility] 23:10 Valdez Starks MD is Attending Physician. [facility] 23:15 Patient has correct armband on for positive identification. Bed in low position. Call [facility] light in reach. Side rails up X 1. 23:15 No provider procedures requiring assistance completed. aj 23:38 Barbra Wolff, RN is Primary Nurse. aj 04/08 01:21 Shannan Arce MD is Hospitalizing Provider. [facility] 03:45 Initial lab(s) drawn, by me, sent to lab. Inserted saline lock: [address] [facility] antecubital area, using aseptic technique. Blood collected. 04:26 Report given to NED Serna on 4th floor. aj1 04:26 Patient admitted, IV remains in place. aj1 Administered Medications: 04/07 23:45 Drug: Xopenex (3) 1.25 mg Route: Inhalation; aj1 04/08 01:31 Drug: SOLU-Medrol 125 mg Route: IVP; Site: left antecubital; aj Outcome: 01:22 Decision to Hospitalize by Provider. [facility] 04:28 Admitted to Med/surg accompanied by tech, via wheelchair, with chart. aj 04:28 Condition: stable 04:28 Discharge instructions given to patient, Instructed on the need for admit, Demonstrated understanding of instructions. 04:29 Patient left the ED. aj Signatures: Barbra Wolff, RN RN aj1 Jovani Flowers PA PA Emelina Mooney 1 Mathew Martin RN RN jd3
--- NOTE | 2019-04-08 01:23 | EDPHYS ---
Physician Documentation [facility] Name: Jenn Robbins Age: 89 yrs Sex: Female : 1930 Arrival Date: 04/07/2019 Time: 20:14 Bed 14 Private MD: MARTHA Physician Valdez Starks HPI: 04/08 00:48 This 89 yrs old Female presents to ER via Wheelchair with complaints of Fever.[facility] 00:48 The patient reports fever, that was measured at 102 degrees Fahrenheit. Onset: The [facility] symptoms/episode began/occurred gradually, 2 day(s) ago. Modifying factors: there are no obvious modifying factors. Associated signs and symptoms: Pertinent positives: cough. This is an 89 year old female with a history of COPD that presents to the ED with complaints of cough, body aches beginning last night. Symptoms worsened today. Denies abdominal pain or vomiting. Denies chest pain. . Historical: - Allergies: 04/07 21:13 Ampicillin; jd3 21:13 Levaquin; jd3 21:13 Nitrofurantoin; jd3 21:13 Sulfa (Sulfonamide Antibiotics); jd3 21:13 Adhesives; jd3 - Home Meds: 21:13 Breo Ellipta inhalation [Active]; Coreg 25 mg Oral tab 1 tab 2 times per day [Active]; jd3 furosemide 20 mg Oral tab 1 tab once daily [Active]; gabapentin 100 mg Oral cap twice a day [Active]; hydroxyzine HCl 25 mg Oral tab [Active]; multivitamin Oral cap daily [Active]; pantoprazole 40 mg Oral TbEC 1 tab once daily [Active]; spironolactone 25 mg Oral tab 1 tab once daily [Active]; Tylenol PM Extra Strength 25-500 mg Oral tab once daily [Active]; - PMHx: 21:13 COPD; Hypertension; Diverticulitis; Osteoporosis; CHF; Arthritis; bells palsy; jd3 - PSHx: 21:13 Appendectomy; Tonsillectomy; Hysterectomy; Cholecystectomy; modified radical right jd3 mastectomy; stapedectomy (right ear); - Immunization history:: Adult Immunizations up to date. - Social history:: Smoking status: Patient/guardian denies using tobacco, but has a distant history of tobacco abuse. - Ebola Screening: : Patient negative for fever greater than or equal to 101.5 degrees Fahrenheit, and additional compatible Ebola Virus Disease symptoms. ROS: 04/08 00:48 Abdomen/GI: Negative for abdominal pain, nausea, vomiting, diarrhea, and constipation. jmm Constitutional: Positive for fever. Respiratory: Positive for cough. All other systems are negative. Exam: 00:48 Constitutional: This is a well developed, well nourished patient who is awake, alert, jmm and in no acute distress. Head/Face: atraumatic. Eyes: EOMI, no conjunctival erythema appreciated ENT: Moist Mucus Membranes Neck: Trachea midline, Supple Chest/axilla: Normal chest wall appearance and motion. 00:48 Back: Normal ROM Skin: General appearance color normal MS/ Extremity: Moves all extremities, no obvious deformities appreciated, no edema noted to the lower extremities Neuro: Awake and alert, normal gait Psych: Behavior is normal, Mood is normal, Patient is cooperative and pleasant 00:48 Cardiovascular: Rate: normal, Rhythm: regular, Pulses: no pulse deficits are appreciated. 00:48 Respiratory: the patient does not display signs of respiratory distress, Respirations: normal, Breath sounds: wheezing: that is mild, is heard in the right upper lobe and right middle lobe. 00:48 Abdomen/GI: Inspection: abdomen appears normal, Bowel sounds: normal, Palpation: abdomen is soft and non-tender, in all quadrants. 00:48 Back: ROM is normal. Vital Signs: 04/07 21:13 BP 121 / 61; Pulse 77; Resp 18 S; Temp 99.1(O); Pulse Ox 97% on R/A; Weight 64.41 kg jd3 (R); Height 4 ft. 11 in. (149.86 cm) (R); Pain 2/10; 23:45 BP 144 / 67; Pulse 79; Resp 20; Pulse Ox 96% on R/A; aj1 04/08 00:37 BP 156 / 69; Pulse 85; Resp 18; Pulse Ox 95% on R/A; aj1 01:35 BP 142 / 71; Pulse 81; Resp 16; Pulse Ox 96% on R/A; aj1 02:30 BP 149 / 63; Pulse 76; Resp 18; Pulse Ox 95% on R/A; aj1 03:30 BP 140 / 65; Pulse 75; Resp 18; Pulse Ox 94% on R/A; aj1 04:00 BP 139 / 61; Pulse 72; Resp 20; Temp 98.3; Pulse Ox 95% on R/A; [facility] 04/07 21:13 Body Mass Index 28.68 (64.41 kg, 149.86 cm) jd3 MDM: 04/07 23:13 Patient medically screened. [facility] 04/08 01:20 Data reviewed: vital signs, nurses notes. Counseling: I had a detailed discussion with [facility] the patient and/or guardian regarding: the historical points, exam findings, and any diagnostic results supporting the discharge/admit diagnosis, lab results, radiology results, the need for further work-up and treatment in the hospital. ED course: I discussed the patient with Dr. Arce whom accepted patient for admission. . 04/07 21:55 Order name: Urine Dipstick--Ancillary (enter results) [facility] 04/07 22:44 Order name: Urine Dipstick-Ancillary; Complete Time: 23:11 EDMS 04/07 23:15 Order name: Basic Metabolic Panel [facility] 04/07 23:15 Order name: CBC with Diff [facility] 04/07 23:15 Order name: LFT's [facility] 04/07 23:15 Order name: Magnesium [facility] 04/07 23:15 Order name: NT PRO-BNP [facility] 04/07 23:15 Order name: PT-INR [facility] 04/07 23:15 Order name: Troponin (emerg Dept Use Only) [facility] 04/07 23:17 Order name: Lactate [facility] 04/07 23:17 Order name: Blood Culture Adult (2) [facility] 04/07 23:18 Order name: Flu 04/07 23:21 Order name: Procalcitonin [facility] 04/08 00:45 Order name: CBC with Automated Diff; Complete Time: 00:47 EDMS 04/07 23:15 Order name: XRAY Chest (1 view) [facility] 04/07 23:15 Order name: EKG; Complete Time: 23:16 [facility] 04/07 23:15 Order name: Cardiac monitoring; Complete Time: 00:29 [facility] 04/07 23:15 Order name: EKG - Nurse/Tech; Complete Time: 01:21 [facility] 04/07 23:58 Order name: RAD; Complete Time: 23:59 [facility] 04/08 00:45 Order name: Protime (+INR); Complete Time: 00:47 [facility] 04/08 00:55 Order name: Influenza Screen (A ; Complete Time: 00:56 [facility] 04/08 00:58 Order name: Lactate; Complete Time: 00:59 [facility] 04/08 01:03 Order name: Basic Metabolic Panel; Complete Time: 01:07 [facility] 04/08 01:03 Order name: Liver (Hepatic) Function; Complete Time: 01:07 [facility] 04/08 01:03 Order name: Troponin (Emerg Dept Use Only); Complete Time: 01:07 [facility] 04/08 01:03 Order name: NT PRO-BNP; Complete Time: 01:07 [facility] 04/08 01:03 Order name: Magnesium; Complete Time: : [facility] 04/08 02:39 Order name: Procalcitonin; Complete Time: 03:06 [facility] 04/07 23:15 Order name: IV Saline Lock; Complete Time: 00:29 [facility] 04/07 23:15 Order name: Labs collected and sent; Complete Time: 00:29 [facility] 04/07 23:15 Order name: O2 Per Protocol; Complete Time: 00:29 [facility] 04/07 23:15 Order name: O2 Sat Monitoring; Complete Time: 00: [facility] 04/08 01:09 Order name: Urine Dipstick-Ancillary (obtain specimen); Complete Time: 01:21 [facility] Administered Medications: 04/07 23:45 Drug: Xopenex (3) 1.25 mg Route: Inhalation; [facility] 04/08 01:31 Drug: SOLU-Medrol 125 mg Route: IVP; Site: left antecubital; aj1 Disposition: 04/08/19 01:22 Hospitalization ordered by Shannan Arce for Observation. Preliminary diagnosis are Chronic obstructive pulmonary disease with (acute) exacerbation, Dehydration. - Bed requested for Telemetry/MedSurg (observation). - Status is Observation. aj1 - Condition is Stable. - Problem is new. - Symptoms have worsened. UTI on Admission? No Addendum: 04/10/2019 10:45 Co-signature as Attending Physician, Valdez Starks MD I agree with the assessment and c mcdonald plan of care. Signatures: Dispatcher [employer] EDBarbra Cassidy RN RN aj1 Raudel, Valdez, Jovani Junior MD, cha, PA PA jmm Garcia, Cindy, RN RN cg Mathew Martin RN RN jd3 Corrections: (The following items were deleted from the chart) 04/08 02:46 01:22 Hospitalization Ordered by Shannan Arce MD for Observation. Preliminary cg diagnosis is Chronic obstructive pulmonary disease with (acute) exacerbation; Dehydration. Bed requested for Telemetry/MedSurg (observation). Status is Observation. Condition is Stable. Problem is new. Symptoms have worsened. UTI on Admission? No. [facility] 04:29 02:46 04/08/2019 01:22 Hospitalization Ordered by Shannan Arce MD for Observation. aj1 Preliminary diagnosis is Chronic obstructive pulmonary disease with (acute) exacerbation; Dehydration. Bed requested for Telemetry/MedSurg (observation). Status is Observation. Condition is Stable. Problem is new. Symptoms have worsened. UTI on Admission? No. cg
[2019-04-08] MEDS ORDERED: METHYLPREDNISOLONE 125 MG INJ ONE (01:25)
[2019-04-08] MEDS ORDERED: MORPHINE 2 MG/ML SYR IV PRN (01:55)
[2019-04-08] MEDS ORDERED: ACETAMINOPHEN 500 MG TAB PO PRN (01:55)
[2019-04-08] MEDS ORDERED: ALBUTEROL 2.5 MG/3 ML NEB SOL NEB PRN (01:55)
[2019-04-08] MEDS ORDERED: ONDANSETRON 4 MG/2 ML VIAL IV PRN (01:55)
[2019-04-08] MEDS ORDERED: GUAIFENESIN/DM 5 ML UCUP PO PRN (01:58)
[2019-04-08] MEDS ORDERED: HYDRALAZINE HCL 20 MG/ML VIAL IV PRN (01:58)
[2019-04-08] MEDS: IPRATROPIUM BROM 0.5MG/2.5ML NEB SCH ×2 (02:00→07:46)
[2019-04-08] MEDS ORDERED: NA CHLORIDE 0.9% 1,000 ML IV SCH (02:00)
[2019-04-08] MEDS ORDERED: CEFTRIAXONE 1 GM/NS 50 ML 1 GM/50 ML BAG IV SCH (04:00)
--- NOTE | 2019-04-08 04:12 | HP ---
Date of Admission: 04/08/2019 Presenting Complaint: Body aches and shortness of breath. History Of Present Illness: Rosendo Barajas is an 89-year-old female with past medical history of hypertension, COPD, who resides at an Older living apartment, presented to the hospital because of 1-day history of cough with worsening shortness of breath. The patient developed wheezing today. The patient denies any sputum production. She denies any headache. She denies any recent cough contact. She admitted to some chills, but no overt fever. On presentation, she was noted with mild wheezing, though O2 saturation was 91% on room air. She received Duo nebs and her symptoms significantly improved now. She is not even to go home soon. She denies any associated chest pain. She denies any diarrhea. Past Medical History: Hypertension, history of diastolic CHF, is on chronic diuretic, history of COPD, history of chronic right bundle branch block, history of generalized joint arthritis. Allergies: AMPICILLIN, SULFA, NITROFURANTOIN, LEVAQUIN, AND ADHESIVES. Family History: Noncontributory. Social History: Lifelong nonsmoker. No history of alcohol or illicit drug use. Resides at a senior older living facility. Fully functional at baseline. Home Medications: Spironolactone, furosemide, Neurontin, Coreg, recently ____ use hydralazine, multivitamin and Protonix as well as Flonase. Review of Systems: All system review negative except for generalized muscle aches. Past Surgical History: Appendectomy, tonsillectomy, hysterectomy, mastectomy, appendectomy, cholecystectomy. Physical Examination: VITALS: Blood pressure of 156/69, pulse of 85, respiratory rate of 18, O2 saturation 95% on room air, temperature 99.1. GENERAL: Elderly female, calm, not in any distress. HEENT: Head is atraumatic, normocephalic. Pupils equal, reactive to light. Extraocular motor movement intact. NECK: No JVD. No carotid bruit. RESPIRATORY: Good air entry bilaterally. No appreciated or elicited excess egophony. No rhonchi or wheeze. CARDIOVASCULAR: S1, S2. Loud A2. GI: Abdomen full, soft, nontender. Bowel sounds positive. EXTREMITIES: Tender bilaterally has palpation chronic tenderness. There are no calf tenderness. No pedal edema. NEURO: Patient is alert, conversant. No neurological focal motor deficit. Laboratory Data: EKG shows right bundle branch block. Sinus rhythm at 108 beats per minute. WBC 10.7, platelet 308, neutrophils 74%, no bands. Hemoglobin 12.5, INR 1.04. Sodium 133, potassium 4.4, bicarb 31, BUN 13, creatinine 1.85, baseline of 1.4-1.8, last however was 1.5 two months ago. Lactic acid 1.4, magnesium 2.5. AST and alkaline phosphatase normal. Troponin less than 0.04. ProBNP of 67, albumin of 3.7. Chest x-ray shows no acute intrathoracic abnormality. Flu swab negative. Impression: 1. Acute chronic obstructive pulmonary disease exacerbation. 2. Acute on chronic renal failure. 3. Hypertension. Plan: We admit patient to observation. We will do gentle IV fluid despite mild improved BNP elevation. The patient's history appears to be clinically dry as evidenced by dry oral mucosa. We will do gentle IV fluids at 30 cc/ hour. We will do IV methylprednisone now. Continue DuoNebs q.6h scheduled. If patient continue to remain without wheezing and later this morning, she may be discharged home with p.o. prednisone. We will resume home medication regimen except hold Lasix. We will do subcutaneous Lovenox for DVT prophylaxis. We will advise that the patient has a living will. EO/MODL Voice ID: [id number] MTDD
[2019-04-08] MEDS ORDERED: CEFTRIAXONE/SWI 1gm 1 GM/10 ML SYR ONE (04:16)
[2019-04-08] MEDS: ALBUTEROL 2.5 MG/3 ML NEB SOL NEB SCH ×3 (04:20→12:45)
[2019-04-08] MEDS ORDERED: CEFTRIAXONE/SWI 1gm 1 GM/10 ML SYR IV SCH (05:00)
[2019-04-08 06:28] LABS: Absolute Lymphocytes (CBC) 0.6 K/uL (0.7-4.9); Basophils % 0.7 % (0-1.3); Hematocrit 36.1 % (36.0-45.0); MPV 8.6 fL (7.6-11.3); RBC Red Blood Cell Count 4.15 M/uL (3.86-4.86)
[2019-04-08 06:32] LABS: Albumin 3.4 g/dL (3.4-5.0); Bilirubin Total 0.5 mg/dL (0.2-1.0); Potassium 3.9 mmol/L (3.5-5.1); Protein, Total 7.6 g/dL (6.4-8.2)
[2019-04-08 06:42] VITALS: O2SAT 96; BMI 29.0
[2019-04-08 07:34] LABS: Blood Morphology Comment NOT SEEN (NOT SEEN); Platelet Estimate ADEQ
--- NOTE | 2019-04-08 08:21 | EKG ---
Test Date: 2019-04-08 Test Time: 00:34:25 Batt Packer: ARIELT MEASUREMENT RESULTS: Intervals: Rate: 78 NM: 174 QRSD: 120 QT: 390 QTc: 444 Louise: P: 90 NM: 174 QRS: 55 T: 49 INTERPRETIVE STATEMENTS: Sinus rhythm with premature atrial complexes Right bundle branch block Abnormal ECG Compared to ECG 02/16/2018 14:25:17 Atrial premature complex(es) now present Electronically Signed On 04-08-19 08:20:44 PARTY CHIEF by Eduardo Ruelas
[2019-04-08] MEDS ORDERED: carvediloL 25 MG TAB PO SCH (09:00)
[2019-04-08] MEDS ORDERED: MULTIVITAMIN TAB PO SCH (09:00)
[2019-04-08] MEDS ORDERED: HEPARIN 5000 UNIT/ML 1 ML VIAL SQ SCH (09:00)
[2019-04-08] MEDS ORDERED: GABAPENTIN 100 MG CAP PO SCH (09:00)
[2019-04-08] MEDS ORDERED: GUAIFENESIN 600 MG SA TAB PO SCH (09:00)
[2019-04-08] MEDS ORDERED: HYDRALAZINE HCL 25 MG TABLET PO SCH (09:00)
[2019-04-08] MEDS ORDERED: FAMOTIDINE 20 MG TAB PO SCH (09:00)
[2019-04-08 11:05] LABS: Uric Acid 8.1 mg/dL (2.6-6.0)
[2019-04-08 12:29] VITALS: BP 117/53; TEMP 98.1
--- NOTE | 2019-04-08 13:19 | CON ---
Date of Consultation: 04/08/2019 Reason For Consultation: The patient was admitted with shortness of breath, COPD exacerbation, found to have elevation in BUN and creatinine. For that reason, we have been consulted. History Of Present Illness: This is a pleasant 89-year-old female well known to me from the office w ith significant past medical history of hypertension, COPD, hyperlipidemia, chronic kidney disease wi th baseline creatinine of 1.6 to 1.7, GFR of 30. The patient came to the hospital complaining from c ough, yellowish sputum, found to have elevated BUN and creatinine. For that reason, we have been con sulted. Over the night, patient was started on some hydration. Kidney function has been stabilized. Creatinine trended from 1.8 to 1.7. Patient feeling better. Patient also received steroid. Blood pressure stayed stable. Past Medical History: Includes: 1.Hypertension. 2.Hyperlipidemia. 3.COPD. 4.Chronic kidney disease, stage 3B, secondary to hypertension, nephrosclerosis. Baseline creatinine 1.6 to 1.7, GFR under 30. Social History: Denies smoking. Denies drinking. Denies drugs of abuse. Family History: Positive for hypertension. Surgical History: Includes appendectomy, tonsillectomy, hysterectomy, mastectomy, open cholecystecto my. Home Medications: Include spironolactone, Lasix, Neurontin, Coreg, multivitamin, hydralazine. Review of Systems: Head and Neck: No red eye. No ear pain. GI: No nausea, no vomiting. : No polyuria, no dysuria, no hematuria. Hospice Care Transitions Coordinator: No vaginal discharge. Respiratory: Has cough. Has shortness of breath. Cardiovascular: No chest pain. Endocrine: No polydipsia. Skin: No rash. Neuro: Has generalized body ache. Musculoskeletal: Low back pain. Physical Examination: General: When I saw the patient, the patient was lying in bed, comfortable. Vital Signs: Blood pressure 135/56, pulse of 85, afebrile. Chest: Clear to auscultation. Heart: S1, S2 regular. Abdomen: Soft, nontender. Extremities: Chronic venous stasis, trace edema. Neuro: Alert, oriented x3. No focal. Medications: Home medications include spironolactone 25, pantoprazole, multivitamin, hydralazine 25 b.i.d., Lasix 20, breathing treatment, clindamycin, carvedilol 25 b.i.d. Current medications the patient on include breathing treatment, carvedilol, Pepcid, gabapentin, hydra lazine, morphine. Assessment And Plan: 1.Acute kidney injury on chronic kidney disease secondary to prerenal, secondary to sickness, poor i ntake, recovered back close to baseline. I am going to resume her diuresis upon discharge. 2.Hypertension, controlled optimal. Continue current treatment. As I mentioned, resume diuresis up on discharge. 3.Chronic obstructive pulmonary disease exacerbation as a primary. Patient cleared from the renal s [facility] for discharge planning. 4.Hypokalemia. We will supplement. 5.Hyponatremia, dilutional. Will resume diuresis. LIZABETH Voice ID: [id number] Report ID: [id number]
--- NOTE | 2019-04-08 21:00 | DS ---
Date of Discharge: 04/08/2019 Consultants: Dr. Romero with Nephrology. Discharge Diagnoses: 1.Acute chronic obstructive pulmonary disease exacerbation. 2.Acute on chronic kidney injury stage IIIB. 3.Essential hypertension, stable. 4.Mixed hyperlipidemia, stable. 5.Hypokalemia, replaced. 6.Hypernatremia, likely dilutional. 7.Hyperuricemia. Hospital Course: Patient is an 89-year-old female with past medical history of hypertension, hyperli pidemia, COPD, chronic kidney disease, who is a resident of [facility], comes in with s ome body aches and shortness of breath. Patient has been on antibiotics at home and was found to be hypoxic with 91% on room air. She was wheezing. Patient improved with nebulizer treatments. Her est x-ray did not show any pneumonia. Patient was started on prophylactic antibiotics, nebulizer ceci atments, and steroids. Patient responded well to therapy. She was able to be weaned off oxygen. Sh e was 96% on room air. Her influenza screen was negative. Blood cultures at this point are pending. She did not have any signs of sepsis. Her procalcitonin was mildly elevated at 0.66; however, agai n no clinical signs of sepsis were seen. The patient's kidney function was a little bit above her ba seline at 1.85, improved with IV fluids. She was seen by her cork wirer and was cleared. The katherin ent was then doing well, able to ambulate without difficulty. She was then transferred back to [facility]. Condition On Discharge: Stable. Activity: No strenuous activity, fall precautions. Diet: Low-sodium, free-fluid restricted diet. Followup: Follow up with primary care physician in 2-3 days, return to ER for worsening condition. Finish of course of antibiotics. Physical Examination: General: Awake, alert, and oriented x3 elderly female. CV: S1, S2. Respiratory: Moving air well bilaterally. Abdomen: Abdomen is soft, nontender, nondistended. Positive bowel sounds. Extremities: No clubbing, cyanosis, or edema. Neurologic: Nonfocal. SA/MODL Voice ID: [id number] Report ID: [id number]
== END 2019-04-08 14:00 | disposition home or self-care (01) ==
LOC: ER 20:06 → ERHOLD 04-08 02:20 → 4TH 04-08 03:31
PROVIDERS: ADMIT Internal Medicine; ATTEND Internal Medicine
DX: J44.1 Chronic obstructive pulmonary disease with (acute) exacerbation (principal); I12.9 Hypertensive chronic kidney disease with stage 1 through stage 4 chronic kidney disease, or unspecified chronic kidney disease; N18.3 Chronic kidney disease, stage 3 (moderate); N17.9 Acute kidney failure, unspecified; E78.2 Mixed hyperlipidemia; E87.6 Hypokalemia; E87.0 Hyperosmolality and hypernatremia; E79.0 Hyperuricemia without signs of inflammatory arthritis and tophaceous disease; Z88.0 Allergy status to penicillin; Z88.2 Allergy status to sulfonamides
CPT/HCPCS: 36415; 71045; 80048; 80053; 80076; 81003; 82550; 83605; 83735; 83880; 83970; 84145; 84484; 84550; 85025; 85610; 87040; 87804; 93005; 94640; 96374; 99285; G0378; J0696; J1644; J2930; J7030